=== PATIENT | male | born 1960 | race Caucasian/White ===

== ENCOUNTER 2017-02-03 16:55 | Inpatient (IN) | payer OTHER, MEDICARE ==
[~2017-02-03] VITALS: Ht 177.8 cm; Wt 54.4 kg
[2017-02-03] MEDS ORDERED: SODIUM CHLORIDE 0.9% 500ML 500 ML IV STA (17:06)
--- NOTE | 2017-02-03 17:08 | EMERGENCY ROOM VISIT NOTE ---
History First contact with patient: 16:58 Chief Complaint: ALTERED MENTAL STATUS Stated Complaint: AMS History of Present Illness The patient is a 57 year old male who presents to the Emergency Room with complaints of diaphoresis and altered mental status. The patient was sent in from a [place] [facility] as he does not appear to be at his baseline today. Nursing staff found him mumbling and diaphoretic. He also appears agitated. The patient lower spine to his name and mumbles. He was brought in by EMS. EMS also reports that the patient's Haldol and amlodipine were recently stopped. Review of Systems See HPI for pertinent positives & negatives. A total of 10 systems reviewed and were otherwise negative. Past Medical/Surgical History Dementia Social History Alcohol Use: none Drug Use: none Housing Status: [place] [facility] Occupation Status: disabled Current/Historical Medications Scheduled Amlodipine (Norvasc), 2.5 MG PO QAM Aripiprazole (Abilify), 2 MG PO QAM Benztropine Mesylate (Benztropine Mesylate), 1 MG PO QAM Mirtazapine (Mirtazapine), 15 MG PO QPM Nicotine (Nicotine), 1 PATCH TOP DAILY Rivastigmine (Rivastigmine Transdermal), 9.5 MG TOP DAILY Scheduled PRN Acetaminophen (Tylenol), 650 MG PO Q6 PRN for Pain Allergies Coded Allergies: Atropine (Unverified Allergy, Unknown, UNKNOWN, 02/03/17) Bee Venom (Unverified Allergy, Unknown, UNKNOWN, 02/03/17) Diphenhydramine (Unverified Allergy, Unknown, UNKNOWN, 02/03/17) Diphenoxylate (Unverified Allergy, Unknown, UNKNOWN, 02/03/17) Latex (Unverified Allergy, Unknown, UNKNOWN, 02/03/17) Midazolam (Unverified Allergy, Unknown, UNKNOWN, 02/03/17) Morphine (Unverified Allergy, Unknown, UNKNOWN, 02/03/17) Penicillins (Unverified Allergy, Unknown, UNKNOWN, 02/03/17) Physical Exam Vital Signs Date Time Temp Pulse Resp B/P Pulse Ox O2 Delivery O2 Flow Rate FiO2 02/03/17 18:38 89 20 103/70 93 02/03/17 18:22 100 16 148/101 96 Room Air 02/03/17 18:03 93 Room Air 2.0 02/03/17 18:03 93 2.0 02/03/17 17:55 78 20 193/122 99 Room Air 02/03/17 17:40 104 02/03/17 17:25 36.8 24 132/92 95 Room Air Physical Exam GENERAL: Patient is a healthy-appearing well-nourished male, shaky in appearance HEAD: Normocephalic atraumatic EYES: Ocular movements intact pupils equal and react to light OROPHARYNX mucous membranes are moist no exudates present no erythema or edema present NECK: Supple no nuchal rigidity CHEST: Good equal expansion LUNGS: Clear and equal to auscultation CARDIAC: Normal S1 and S2 ABDOMEN: Soft nontender no guarding BACK: No CVA tenderness EXTREMITIES: No pain upon palpation normal muscle strength in all groups no clubbing cyanosis or edema NEURO: Patient does not follow commands, does not answer questions. Cranial Nerves 2-12 grossly intact Medical Decision & Procedures ER Provider Diagnostic Interpretation: CHEST ONE VIEW PORTABLE CLINICAL HISTORY: Pt c/o AMS dyspnea COMPARISON STUDY: No previous studies for comparison. FINDINGS: The bones soft tissues and hemidiaphragms are normal. The cardiomediastinal silhouette is normal. The lungs are clear. The pulmonary vasculature is normal. Images acquired in a lordotic projection accentuating the mediastinal structures. IMPRESSION: Negative chest. Electronically signed by: Vishnu Jones M.D. 02/03/2017 6:29 PM Dictated Date/Time: 02/03/2017 6:[address] CT DOSE: 1612.45 mGy.cm HISTORY: Mental status change. Pt c/o AMS TECHNIQUE: Multiaxial CT images of the head were performed without the use of intravenous contrast. Comparison: None. Findings: The paranasal sinuses and mastoid air cells are clear. Moderate prominence of the ventricular system. Mild age-related chronic small vessel change. Somewhat prominent atrophy for age. Impression: 1. No acute intracranial abnormality. 2. Mild hydrocephalus with mild atrophy somewhat prominent for age. 3. Moderate chronic small vessel change, also somewhat prominent for age. 4. No acute intracranial abnormality. Electronically signed by: Vishnu Jones M.D. 02/03/2017 6:58 PM Dictated Date/Time: 02/03/2017 6:56 PM Laboratory Results 02/03/17 17:40 Red Blood Count 4.43, Mean Corpuscular Volume 85.8, Mean Corpuscular Hemoglobin 30.0, Mean Corpuscular Hemoglobin Concent 35.0, Mean Platelet Volume 10.0, Neutrophils (%) (Auto) 71.4, Lymphocytes (%) (Auto) 17.1, Monocytes (%) (Auto) 10.6, Eosinophils (%) (Auto) 0.6, Basophils (%) (Auto) 0.3, Neutrophils # (Auto ) 4.51, Lymphocytes # (Auto) 1.08, Monocytes # (Auto) 0.67, Eosinophils # (Auto ) 0.04, Basophils # (Auto) 0.02 02/03/17 17:40 Test 02/03/17 17:15 02/03/17 17:40 02/03/17 17:47 02/03/17 17:52 Urine Color DK YELLOW Urine Appearance CLEAR (CLEAR) Urine pH 5.0 (4.5-7.5) Urine Specific [place] 1.027 (1.000-1.030) Urine Protein NEG (NEG) Urine Glucose (UA) NEG (NEG) Urine Ketones NEG (NEG) Urine Occult Blood NEG (NEG) Urine Nitrite NEG (NEG) Urine Bilirubin NEG (NEG) Urine Urobilinogen NEG (NEG) Urine Leukocyte Esterase NEG (NEG) White Blood Count 6.32 K/uL (4.8-10.8) Red Blood Count 4.43 M/uL (4.7-6.1) Hemoglobin 13.3 g/dL (14.0-18.0) Hematocrit 38.0 % (42-52) Mean Corpuscular Volume 85.8 fL (80-100) Mean Corpuscular Hemoglobin 30.0 pg (25-34) Mean Corpuscular Hemoglobin Concent 35.0 g/dl (32-36) Platelet Count 214 K/uL (130-400) Mean Platelet Volume 10.0 fL (7.4-10.4) Neutrophils (%) (Auto) 71.4 % Lymphocytes (%) (Auto) 17.1 % Monocytes (%) (Auto) 10.6 % Eosinophils (%) (Auto) 0.6 % Basophils (%) (Auto) 0.3 % Neutrophils # (Auto) 4.51 K/uL (1.4-6.5) Lymphocytes # (Auto) 1.08 K/uL (1.2-3.4) Monocytes # (Auto) 0.67 K/uL (0.11-0.59) Eosinophils # (Auto) 0.04 K/uL (0-0.5) Basophils # (Auto) 0.02 K/uL (0-0.2) RDW Standard Deviation 40.7 fL (36.4-46.3) RDW Coefficient of Variation 12.9 % (11.5-14.5) Immature Granulocyte % (Auto) 0.0 % Immature Granulocyte # (Auto) 0.00 K/uL (0.00-0.02) Anion Gap 8.0 mmol/L (3-11) Estimated GFR () 77.9 Estimated GFR (Non- 67.2 BUN/Creatinine Ratio 35.1 (10-20) Calcium Level 9.1 mg/dl (8.5-10.1) Total Bilirubin 0.9 mg/dl (0.2-1) Direct Bilirubin 0.2 mg/dl (0-0.2) Aspartate Amino Transf (AST/SGOT) 110 U/L (15-37) Alanine Aminotransferase (ALT/SGPT) 100 U/L (12-78) Alkaline Phosphatase 53 U/L (45-117) Total Creatine Kinase 3770 U/L (39-308) Creatine Kinase MB 5.0 ng/ml (0.5-3.6) Creatine Kinase MB Ratio 0.1 (0-3.0) Troponin I < 0.015 ng/ml (0-0.045) Total Protein 7.1 gm/dl (6.4-8.2) Albumin 4.0 gm/dl (3.4-5.0) Thyroid Stimulating Hormone (TSH) 1.020 uIu/ml (0.300-4.500) Influenza Type A Antigen Neg for Influ A (NEG) Influenza Type B Antigen Neg for Influ B (NEG) Ammonia 10.0 umol/L (11-32) Test 02/03/17 19:32 Medications Administered Medications (Trade) Dose Ordered Sig/Sonia Route Start Time Stop Time Status Last Admin Dose Admin Sodium Chloride (Nss 500ml) 500 ml @ 999 mls/hr Q31M STAT IV 02/03/17 17:06 02/03/17 17:36 DC 02/03/17 17:32 999 MLS/HR Haloperidol Lactate (Haldol Inj) 5 mg NOW STAT IM 4/4/17 17:20 02/03/17 17:22 DC 02/03/17 17:29 5 MG Haloperidol Lactate (Haldol Inj) 5 mg NOW STAT IM 02/03/17 17:46 02/03/17 17:47 DC 02/03/17 17:51 5 MG Lorazepam (Ativan Inj) 2 mg NOW STAT IV 02/03/17 18:23 02/03/17 18:24 DC 02/03/17 18:30 2 MG ECG Indication: chest pain Rate (beats per minute): 73 Rhythm: normal sinus Findings: no acute ischemic change, no ectopy Medical Decision This is a 57-year-old male who presents emergency department complaining of diaphoresis. The patient Haldol and amlodipine were recently [place] the [place] [facility]. Upon arrival to the emergency department the patient appears to be at his baseline however he does have a large elevation in his CK and MB fractions. Based on these findings the patient was started on a normal saline bolus. The patient had a be sedated in the emergency department and service see 5 mg of Haldol 2 and 1 mg of Ativan 2. He was sent for CAT scan of the head received portable chest. He has no evidence of infection has a normal white blood cell count normal chest x-ray. I discussed the case with the hospitalist service. Impression Primary Impression: Altered mental status Additional Impression: Rhabdomyolysis Departure Information Dispostion Still a Patient Patient Instructions My [facility] Problem Qualifiers Primary Impression: Altered mental status Altered mental status type: unspecified Qualified Codes: R41.82 - Altered mental status, unspecified Additional Impression: Rhabdomyolysis Rhabdomyolysis type: non-traumatic Qualified Codes: M62.82 - Rhabdomyolysis
[2017-02-03] MEDS ORDERED: HALOPERIDOL LACTATE 5 MG/ML 1 ML VIAL IM STA ×2 (17:20→17:46)
[2017-02-03 17:25] LABS: URINE APPEARANCE CLEAR (CLEAR); URINE BILIRUBIN NEG (NEG); URINE COLOR DK YELLOW; URINE NITRITE NEG (NEG); URINE SPECIFIC GRAVITY 1.027 (1.000-1.030); UROBILINOGEN NEG (NEG); ZZURINE CULT IF INDIC CATH NO
[2017-02-03 17:27] LABS: MANUAL MICROSCOPIC REQUIRED? NO; REVIEW REQ? NO
[2017-02-03] MEDS ORDERED: NICO14DI9 TOP (17:43)
[2017-02-03] MEDS ORDERED: BENZ-88 PO (17:43)
[2017-02-03] MEDS ORDERED: ACET-1311 PO (17:43)
[2017-02-03] MEDS ORDERED: ARIP2TAB3 PO (17:43)
[2017-02-03] MEDS ORDERED: MIRT15TA53 PO (17:43)
[2017-02-03] MEDS ORDERED: RIVA1DIS4 TOP (17:43)
[2017-02-03] MEDS ORDERED: AMLO2.5T PO (17:43)
[2017-02-03 18:07] LABS: BASO % 0.3 %; BASO ABS # 0.02 K/uL (0-0.2); COMPLETE YES; EOS % 0.6 %; LYMPH % 17.1 %; LYMPH ABS # 1.08 K/uL (1.2-3.4); MEAN CELL VOLUME 85.8 fL (80-100); MONO % 10.6 %; NEUT % 71.4 %; PLATELET COUNT 214 K/uL (130-400); RED BLOOD COUNT 4.43 M/uL (4.7-6.1); WHITE BLOOD COUNT 6.32 K/uL (4.8-10.8)
[2017-02-03] MEDS ORDERED: LORAZEPAM 2 MG/ML 1 ML VIAL IV STA (18:23)
[2017-02-03 18:28] LABS: AST/SGOT 110 U/L (15-37); BLOOD UREA NITROGEN 42 mg/dl (7-18); BUN/CREATININE RATIO 35.1 (10-20); CALCIUM 9.1 mg/dl (8.5-10.1); CARBON DIOXIDE 27 mmol/L (21-32); CHLORIDE 109 mmol/L (98-107); GLUCOSE 104 mg/dl (70-99); POTASSIUM 4.2 mmol/L (3.5-5.1); SODIUM 144 mmol/L (136-145)
--- NOTE | 2017-02-03 18:30 | DIAGNOSTIC IMAGING REPORT ---
CHEST ONE VIEW PORTABLE CLINICAL HISTORY: Pt c/o AMS dyspnea COMPARISON STUDY: No previous studies for comparison. FINDINGS: The bones soft tissues and hemidiaphragms are normal. The cardiomediastinal silhouette is normal. The lungs are clear. The pulmonary vasculature is normal. Images acquired in a lordotic projection accentuating the mediastinal structures. IMPRESSION: Negative chest. Electronically signed by: Vishnu Jones M.D. 02/03/2017 6:29 PM Dictated Date/Time: 02/03/2017 6:28 PM
[2017-02-03 18:43] LABS: ALKALINE PHOSPHATASE 53 U/L (45-117); ALT/SGPT 100 U/L (12-78); CKMB/CK RATIO 0.1 (0-3.0)
[2017-02-03] MEDS ORDERED: SODIUM CHLORIDE 0.9% 1000ML 1,000 ML IV STA (18:54)
--- NOTE | 2017-02-03 18:59 | DIAGNOSTIC IMAGING REPORT ---
HEAD CT NONCONTRAST CT DOSE: 1612.45 mGy.cm HISTORY: Mental status change. Pt c/o AMS TECHNIQUE: Multiaxial CT images of the head were performed without the use of intravenous contrast. Comparison: None. Findings: The paranasal sinuses and mastoid air cells are clear. Moderate prominence of the ventricular system. Mild age-related chronic small vessel change. Somewhat prominent atrophy for age. Impression: 1. No acute intracranial abnormality. 2. Mild hydrocephalus with mild atrophy somewhat prominent for age. 3. Moderate chronic small vessel change, also somewhat prominent for age. 4. No acute intracranial abnormality. Electronically signed by: Vishnu Jones M.D. 02/03/2017 6:58 PM Dictated Date/Time: 02/03/2017 6:56 PM
[2017-02-03 19:53] LABS: BENZODIAZEPINE, URINE NEG (NEG); COCAINE,URINE NEG (NEG); PHENCYCLIDINE, URINE NEG (NEG)
[2017-02-03 19:57] LABS: INFLUENZA A PCR Neg for Influ A (NEG); INFLUENZA B PCR Neg for Influ B (NEG)
[2017-02-03] MEDS ORDERED: ONDANSETRON INJ 2 MG/ML 2 ML VIAL IV PRN (20:00)
--- NOTE | 2017-02-03 20:31 | DIAGNOSTIC IMAGING REPORT ---
Right upper quadrant ultrasound (LIVER) ABDOMEN LIMITED CLINICAL HISTORY: ABNORMAL Lift's elevated liver function tests TECHNIQUE: Ultrasound COMPARISON STUDY: None FINDINGS: Normal gallbladder. Common bile duct 3 mm. Liver is uniform. Pancreas and right kidney are unremarkable. IMPRESSION: Normal study Electronically signed by: Vishnu Jones M.D. 02/03/2017 8:29 PM Dictated Date/Time: 02/03/2017 8:28 PM
[2017-02-03 21:04] LABS: ACETAMINOPHEN < 2 ug/ml (10-30)
[2017-02-03 21:54] VITALS: BP 107/72; PULSE 75; TEMP 36.8; O2SAT 98; Ht 177.8 cm; Wt 54.4 kg
[2017-02-03] MEDS ORDERED: SODIUM CHLORIDE 0.9% 1000ML 1,000 ML IV SCH (23:00)
--- NOTE | 2017-02-04 04:20 | History and Physical ---
History & Physical Date & Time of Service: Feb 04, 2017 at 04:08. The patient was seen on 02/03/2017. Chief Complaint: Altered Mental Status Primary Care Physician: Rehab,[facility] Nursing and History of Present Illness Source: spouse The patient is a 57-year-old male resident of [facility], brought to the emergency department with complaint of diaphoresis and altered mental status. He was also noted to be mumbling and agitated there. He recently had Haldol and amlodipine stopped there is well. The patient himself is not able to contribute to the history of present illness due to his altered mental status and baseline Lewy body dementia. His was present during the exam is able to fill in part of the history. Social History Smoking Status: Smoker Current Status UNK Smokeless Tobacco Use: No Alcohol Use: none Drug Use: none Marital Status: Housing status: residential Occupational Status: disabled Multi-Drug Resistant Organisms History of MDRO: No Allergies Coded Allergies: Atropine (Unverified Allergy, Unknown, UNKNOWN, 02/03/17) Bee Venom (Unverified Allergy, Unknown, UNKNOWN, 02/03/17) Diphenhydramine (Unverified Allergy, Unknown, UNKNOWN, 02/03/17) Diphenoxylate (Unverified Allergy, Unknown, UNKNOWN, 02/03/17) Latex (Unverified Allergy, Unknown, UNKNOWN, 02/03/17) Midazolam (Unverified Allergy, Unknown, UNKNOWN, 02/03/17) Morphine (Unverified Allergy, Unknown, UNKNOWN, 02/03/17) Penicillins (Unverified Allergy, Unknown, UNKNOWN, 02/03/17) Home Medications Scheduled Amlodipine (Norvasc), 2.5 MG PO QAM Aripiprazole (Abilify), 2 MG PO QAM Benztropine Mesylate (Benztropine Mesylate), 1 MG PO QAM Mirtazapine (Mirtazapine), 15 MG PO QPM Nicotine (Nicotine), 1 PATCH TOP DAILY Rivastigmine (Rivastigmine Transdermal), 9.5 MG TOP DAILY Scheduled PRN Acetaminophen (Tylenol), 650 MG PO Q6 PRN for Pain Review of Systems The patient is not able to contribute to his review of systems due to baseline Lewy body dementia and altered mental status. As noted above, his who is present, does fill in part of the history. Physical Exam Vital Signs Date Time Temp Pulse Resp B/P Pulse Ox O2 Delivery O2 Flow Rate FiO2 02/04/17 00:00 Room Air 02/03/17 21:54 36.8 75 17 107/72 98 Room Air 02/03/17 20:50 60 14 87/55 91 Room Air 02/03/17 19:53 77 16 95/62 97 Room Air 02/03/17 18:38 89 20 103/70 93 02/03/17 18:22 100 16 148/101 96 Room Air 02/03/17 18:03 93 Room Air 2.0 02/03/17 18:03 93 2.0 02/03/17 17:55 78 20 193/122 99 Room Air 02/03/17 17:40 104 02/03/17 17:25 36.8 24 132/92 95 Room Air The patient is sedated, does not respond to questioning, is in no acute distress. HEENT--PERRL, EOMI, mucous membranes and oropharynx dry. Neck--supple, no JVD or bruits, thyroid normal, trachea midline, no adenopathy. Heart--normal S1 and S2, no extra beats, no murmurs, rubs or gallops. Lungs--clear bilaterally, no respiratory distress, no accessory muscle use. Abdomen--normal bowel sounds and soft, nontender and nondistended, no hernias or masses, no organomegaly. Extremities--no cyanosis, clubbing or edema. There are good distal pulses b/l. Dermatologic--normal skin turgor, normal color, warm and dry, no abnormal lymph nodes, no rash. Neurologic--cranial nerves II through XII grossly intact, motor and sensory examination normal. Rheumatologic--normal range of motion, nontender, muscles and joints. Psychiatric--sedated. Diagnostics Laboratory Results Results Past 24 Hours Test 02/03/17 17:15 02/03/17 17:40 02/03/17 17:47 02/03/17 17:52 Range/Units Urine Color DK YELLOW Urine Appearance CLEAR CLEAR Urine pH 5.0 4.5-7.5 Urine Specific [place] 1.027 1.000-1.030 Urine Protein NEG NEG Urine Glucose (UA) NEG NEG Urine Ketones NEG NEG Urine Occult Blood NEG NEG Urine Nitrite NEG NEG Urine Bilirubin NEG NEG Urine Urobilinogen NEG NEG Urine Leukocyte Esterase NEG NEG Urine Opiates Screen NEG NEG Urine Methadone, Qualitative NEG NEG Urine Barbiturates NEG NEG Urine Phencyclidine (PCP) Level NEG NEG Ur Amphetamine/Methamphetamine NEG NEG MDMA (Ecstasy) Screen NEG NEG Urine Benzodiazepines Screen NEG NEG Urine Cocaine Metabolite NEG NEG Urine Marijuana (THC) NEG NEG White Blood Count 6.32 4.8-10.8 K/uL Red Blood Count 4.43 4.7-6.1 M/uL Hemoglobin 13.3 14.0-18.0 g/dL Hematocrit 38.0 42-52 % Mean Corpuscular Volume 85.8 80-100 fL Mean Corpuscular Hemoglobin 30.0 25-34 pg Mean Corpuscular Hemoglobin Concent 35.0 32-36 g/dl Platelet Count 214 130-400 K/uL Mean Platelet Volume 10.0 7.4-10.4 fL Neutrophils (%) (Auto) 71.4 % Lymphocytes (%) (Auto) 17.1 % Monocytes (%) (Auto) 10.6 % Eosinophils (%) (Auto) 0.6 % Basophils (%) (Auto) 0.3 % Neutrophils # (Auto) 4.51 1.4-6.5 K/uL Lymphocytes # (Auto) 1.08 1.2-3.4 K/uL Monocytes # (Auto) 0.67 0.11-0.59 K/uL Eosinophils # (Auto) 0.04 0-0.5 K/uL Basophils # (Auto) 0.02 0-0.2 K/uL RDW Standard Deviation 40.7 36.4-46.3 fL RDW Coefficient of Variation 12.9 11.5-14.5 % Immature Granulocyte % (Auto) 0.0 % Immature Granulocyte # (Auto) 0.00 0.00-0.02 K/uL Sodium Level 144 136-145 mmol/L Potassium Level 4.2 3.5-5.1 mmol/L Chloride Level 109 98-107 mmol/L Carbon Dioxide Level 27 21-32 mmol/L Anion Gap 8.0 3-11 mmol/L Blood Urea Nitrogen 42 7-18 mg/dl Creatinine 1.20 0.60-1.40 mg/dl Estimated GFR () 77.9 Estimated GFR (Non- 67.2 BUN/Creatinine Ratio 35.1 10-20 Random Glucose 104 70-99 mg/dl Calcium Level 9.1 8.5-10.1 mg/dl Total Bilirubin 0.9 0.2-1 mg/dl Direct Bilirubin 0.2 0-0.2 mg/dl Aspartate Amino Transf (AST/SGOT) 110 15-37 U/L Alanine Aminotransferase (ALT/SGPT) 100 12-78 U/L Alkaline Phosphatase 53 45-117 U/L Total Creatine Kinase 3770 39-308 U/L Creatine Kinase MB 5.0 0.5-3.6 ng/ml Creatine Kinase MB Ratio 0.1 0-3.0 Troponin I < 0.015 0-0.045 ng/ml Total Protein 7.1 6.4-8.2 gm/dl Albumin 4.0 3.4-5.0 gm/dl Thyroid Stimulating Hormone (TSH) 1.020 0.300-4.500 uIu/ml Influenza Type A (RT-PCR) Neg for Influ A NEG Influenza Type A Antigen Neg for Influ A NEG Influenza Type B Antigen Neg for Influ B NEG Influenza Type B (RT-PCR) Neg for Influ B NEG Ammonia 10.0 11-32 umol/L Test 02/03/17 20:34 Range/Units Salicylates Level < 1.7 2.8-20 mg/dl Acetaminophen Level < 2 10-30 ug/ml Hepatitis B Surface Antigen NEG NEG Hepatitis C Antibody NEG NEG Diagnostic Radiology Patient Name: FLORIDA ARRIOLA Unit Number: [id number] Dictated: 02/03/171855 Transcribed: 02/03/171855 MS Printed Date/Time: [~ rep prt dt]/[~ rep prt tm] [~ rep ct labl] - [~ rep ct ivnm] [facility] [place] [address] Dictated: 02/03/171855 Transcribed: 02/03/171855 MS Printed Date/Time: [~ rep prt dt]/[~ rep prt tm] [~ rep ct labl] - [~ rep ct ivnm] [~ rep ct add3]] HEAD CT NONCONTRAST CT DOSE: 1612.45 mGy.cm HISTORY: Mental status change. Pt c/o AMS TECHNIQUE: Multiaxial CT images of the head were performed without the use of intravenous contrast. Comparison: None. Findings: The paranasal sinuses and mastoid air cells are clear. Moderate prominence of the ventricular system. Mild age-related chronic small vessel change. Somewhat prominent atrophy for age. Impression: 1. No acute intracranial abnormality. 2. Mild hydrocephalus with mild atrophy somewhat prominent for age. 3. Moderate chronic small vessel change, also somewhat prominent for age. 4. No acute intracranial abnormality. Electronically signed by: Vishnu Jones M.D. 02/03/2017 6:58 PM Dictated Date/Time: 02/03/2017 6:56 PM The status of this report is Signed. Draft = Not yet reviewed or approved by Radiologist. Signed = Reviewed and approved by Radiologist. <AttendingPhy></AttendingPhy> <FamilyPhy>[facility]</FamilyPhy > <PrimaryPhy>[facility]</PrimaryPhy> <UnitNumber>[id number]</ UnitNumber> <VisitNumber>[id number]</VisitNumber> <PatientName>FLORIDA ARRIOLA</ PatientName> <DateOfBirth>1960</DateOfBirth> <Location>[facility]</Location> < ServiceDate>02/03/17</ServiceDate> <MNE>ESINDI</MNE> <OrderingPhy>Arnulfo Kahn MD</OrderingPhy> <OrderingPhyMNE>f rep ord dr hatfield</OrderingPhyMNE> < DictatingPhyMNE>f rep dict dr hatfield</DictatingPhyMNE> <CCListMNE>f rep ct liu</ CCListMNE> <AdmittingPhyMNE>f pt admit dr hatfield</AdmittingPhyMNE> <AttendingPhyMNE >f pt attend dr hatfield</AttendingPhyMNE> <ConsultingPhyMNE>f pt consult dr hatfield</ConsultingPhyMNE> <FamilyPhyMNE>f pt fam dr hatfield</FamilyPhyMNE> <OtherPhyMNE>f pt other dr hatfield</OtherPhyMNE> < PrimaryPhyMNE>f pt prim care dr hatfield</PrimaryPhyMNE> <ReferringPhyMNE>f pt referring dr hatfield</ReferringPhyMNE> Patient Name: FLORIDA ARRIOLA Unit Number: [id number] Dictated: 02/03/171827 Transcribed: 02/03/171827 MS Printed Date/Time: [~ rep prt dt]/[~ rep prt tm] [~ rep ct labl] - [~ rep ct ivnm] [facility] [place] [address] Dictated: 02/03/171827 Transcribed: 02/03/171827 MS Printed Date/Time: [~ rep prt dt]/[~ rep prt tm] [~ rep ct labl] - [~ rep ct ivnm] CHEST ONE VIEW PORTABLE CLINICAL HISTORY: Pt c/o AMS dyspnea COMPARISON STUDY: No previous studies for comparison. FINDINGS: The bones soft tissues and hemidiaphragms are normal. The cardiomediastinal silhouette is normal. The lungs are clear. The pulmonary vasculature is normal. Images acquired in a lordotic projection accentuating the mediastinal structures. IMPRESSION: Negative chest. Electronically signed by: Vishnu Jones M.D. 02/03/2017 6:29 PM Dictated Date/Time: 02/03/2017 6:28 PM The status of this report is Signed. Draft = Not yet reviewed or approved by Radiologist. Signed = Reviewed and approved by Radiologist. <AttendingPhy></AttendingPhy> <FamilyPhy>[facility]</FamilyPhy > <PrimaryPhy>[facility]</PrimaryPhy> <UnitNumber>[id number]</ UnitNumber> <VisitNumber>[id number]</VisitNumber> <PatientName>FLORIDA ARRIOLA</ PatientName> <DateOfBirth>1960</DateOfBirth> <Location>[facility]</Location> < ServiceDate>02/03/17</ServiceDate> <MNE>ESINDI</MNE> <OrderingPhy>Arnulfo Kahn MD</OrderingPhy> <OrderingPhyMNE>f rep ord dr hatfield</OrderingPhyMNE> < DictatingPhyMNE>f rep dict dr hatfield</DictatingPhyMNE> <CCListMNE>f rep ct mne</ CCListMNE> <AdmittingPhyMNE>f pt admit dr hatfield</AdmittingPhyMNE> <AttendingPhyMNE >f pt attend dr hatfield</AttendingPhyMNE> <ConsultingPhyMNE>f pt consult dr hatfield</ConsultingPhyMNE> <FamilyPhyMNE>f pt fam dr hatfield</FamilyPhyMNE> <OtherPhyMNE>f pt other dr hatfield</OtherPhyMNE> < PrimaryPhyMNE>f pt prim care dr hatfield</PrimaryPhyMNE> <ReferringPhyMNE>f pt referring dr hatfield</ReferringPhyMNE> Patient Name: FLORIDA ARRIOLA Unit Number: [id number] Dictated: 02/03/172027 Transcribed: 02/03/172027 MS Printed Date/Time: [~ rep prt dt]/[~ rep prt tm] [~ rep ct labl] - [~ rep ct ivnm] [facility] Radiology Department [place] [id number] Dictated: 02/03/172027 Transcribed: 02/03/172027 MS Printed Date/Time: [~ rep prt dt]/[~ rep prt tm] [~ rep ct labl] - [~ rep ct ivnm] [~ rep ct add3]] Right upper quadrant ultrasound (LIVER) ABDOMEN LIMITED CLINICAL HISTORY: ABNORMAL Lift's elevated liver function tests TECHNIQUE: Ultrasound COMPARISON STUDY: None FINDINGS: Normal gallbladder. Common bile duct 3 mm. Liver is uniform. Pancreas and right kidney are unremarkable. IMPRESSION: Normal study Electronically signed by: Vishnu Joens M.D. 02/03/2017 8:29 PM Dictated Date/Time: 02/03/2017 8:28 PM The status of this report is Signed. Draft = Not yet reviewed or approved by Radiologist. Signed = Reviewed and approved by Radiologist. <AttendingPhy></AttendingPhy> <FamilyPhy>[facility]</FamilyPhy > <PrimaryPhy>[facility]</PrimaryPhy> <UnitNumber>[id number]</ UnitNumber> <VisitNumber>[id number]</VisitNumber> <PatientName>FLORIDA ARRIOLA</ PatientName> <DateOfBirth>1960</DateOfBirth> <Location>[facility]</Location> < ServiceDate>02/03/17</ServiceDate> <MNE>ESINDI</MNE> <OrderingPhy>Mario Alberto Butler M.D.</OrderingPhy> <OrderingPhyMNE>f rep ord dr hatfield</OrderingPhyMNE> < DictatingPhyMNE>f rep dict dr hatfield</DictatingPhyMNE> <CCListMNE>f rep ct liu</ CCListMNE> <AdmittingPhyMNE>f pt admit dr hatfield</AdmittingPhyMNE> <AttendingPhyMNE >f pt attend dr hatfield</AttendingPhyMNE> <ConsultingPhyMNE>f pt consult dr hatfield</ConsultingPhyMNE> <FamilyPhyMNE>f pt fam dr hatfield</FamilyPhyMNE> <OtherPhyMNE>f pt other dr hatfield</OtherPhyMNE> < PrimaryPhyMNE>f pt prim care dr hatfield</PrimaryPhyMNE> <ReferringPhyMNE>f pt referring dr hatfield</ReferringPhyMNE> EKG EKG shows normal sinus rhythm at 73 bpm, there are no acute ST-T changes. Impression Assessment and Plan Lewy body dementia/altered mental status--the patient be will be admitted to the medical floor. He'll be nothing by mouth. Place on normal saline with potassium chloride 20 mEq at 100 ML's per hour. We'll continue Rivastigmine transdermal 9.5 mg topical daily. Hold Abilify 2 mg by mouth every morning, benztropine 1 mg by mouth every morning, and mirtazapine 15 mg by mouth nightly due to nothing by mouth status. Rhabdomyolysis-CK is elevated at 3770, we'll hydrate as noted above and repeat in the a.m. Abnormal liver function tests--order ultrasound of right upper quadrant assess for possible disease. Repeat laboratories in the a.m. Hypertension--hold amlodipine 2.5 mg by mouth every morning. Tobacco use disorder continue nicotine patch topical daily. Level of Care Med/Surg Advanced Directives Existing Advance Directive: No Existing Living Will: No Existing Power of Street Light Mechanic: No Resuscitation Status FULL RESUSCITATION VTE Prophylaxis VTE Risk Assessment Done? Y/N: Yes Risk Level: Moderate Given or contraindicated: SCD's Social Service Consult Lives in Group Home
[2017-02-04 06:50] VITALS: BP 130/72; PULSE 88; TEMP 36.6; O2SAT 98
[2017-02-04 07:15] LABS: BASO % 0.5 %; BASO ABS # 0.03 K/uL (0-0.2); COMPLETE YES; EOS % 2.3 %; HEMATOCRIT 38.4 % (42-52); IG% 0.2 %; LYMPH ABS # 1.19 K/uL (1.2-3.4); MEAN CELL VOLUME 88.3 fL (80-100); MEAN CORPUSCULAR HEMOGLOBIN 29.9 pg (25-34); MEAN CORPUSCULAR HGB CONC 33.9 g/dl (32-36); MEAN PLATELET VOLUME 10.3 fL (7.4-10.4); MONO % 11.7 %; NEUT % 64.3 %; PLATELET COUNT 175 K/uL (130-400); RED BLOOD COUNT 4.35 M/uL (4.7-6.1); WHITE BLOOD COUNT 5.66 K/uL (4.8-10.8)
[2017-02-04 07:27] LABS: PROTHROMBIN TIME (PATIENT) 11.2 SECONDS (9.0-12.0)
[2017-02-04 07:45] LABS: CALCIUM 8.4 mg/dl (8.5-10.1); CREATININE 0.91 mg/dl (0.60-1.40); MAGNESIUM 2.4 mg/dl (1.8-2.4); POTASSIUM 3.9 mmol/L (3.5-5.1)
[2017-02-04] MEDS ORDERED: RIVASTIGMINE TARTRATE 9.5 MG PATCH TD SCH (08:00)
[2017-02-04] MEDS: NICOTINE 14 MG/24 HR TDSY TD SCH (08:29)
[2017-02-04] MEDS ORDERED: LORAZEPAM 2 MG/ML 1 ML VIAL IV PRN (08:45)
--- NOTE | 2017-02-04 08:59 | Clinical Documentation Query ---
CLINICAL DOCUMENTATION QUERY Dr. NUNEZ, In your clinical opinion is this patient being managed for: (x ) Metabolic encephalopathy see my notes ( ) Other explanation of clinical findings (Please Explain) ( ) Unable to determine (Please Define) ( ) Need to Discuss ( ) Not Agree The medical record reflects the following clinical findings, treatment, and risk factors. Clinical Indicators: 57 yo male presenting with diaphoresis and an altered mental status beyond his baseline Lewy body dementia. CT head showed mild hydrocephalus but no acute findings. CK 3770 Treatment: 1500 cc NSS bolus then continuous, pending neuro consult, monitor CK Risk Factors: rhabdomyolysis Please clarify and document your clinical opinion in the progress notes and discharge summary. Terms such as "probable", "suspected", "likely", "questionable", "possible", or "still to be ruled out" are acceptable. IF IN AGREEMENT, YOU MUST DOCUMENT ABOVE DIAGNOSTIC STATEMENT IN DAILY PROGRESS NOTES AND DISCHARGE SUMMARY. This document is not part of the patient's record. Thank You, Aimee Oconnor, [place] [phone]
[2017-02-04] MEDS ORDERED: SODIUM CHLOR 0.45% + 20MEQ KCL 1,000 ML IV SCH (09:00)
[2017-02-04] MEDS: PANTOprazole INJ 40 MG in SYRINGE 0 ML IV SCH (11:28)
--- NOTE | 2017-02-04 14:01 | Neurology Consultation ---
Neurology Consultation Date of Consultation: Feb 04, 2017. Attending Physician: Rodriguez Ibarra D.O. Primary Care Physician: Rehab,[facility] Nursing and Reason for Consultation: Lewy Body Dementia History of Present Illness Source: hospital records Loyd is a 57-year-old male resident of [facility] with a H diagnosis of Lewy Body dementia. He was last seen in our clinic in [place] 2015. He had been seen by neurosurgery for evaluation of NPH but neurosurgery did not feel this would help his symptoms so the trial was never completed. At last visit he was on only Exelon 3mg 2x per day orally. He scored a 6 on MME. He was followed by psychiatry as an outpatient but it is unclear at that time what he was taking. He had been previously trial of Namenda but his liver enzymes where elevated so it was stopped. He was brought to the ED due to confusion. reported to nursing that [facility] stopped his haldol and was in the process of switching him to Risperdal but he was never started on the Risperdal. He was also on remeron 15 mg, Abilify 2mg but both were held at admission. He is currently lying in bed and there is no family in the room. Past Medical/Surgical History Medical Problems: (1) Altered mental status Status: Acute Social History Smokeless Tobacco Use: No Alcohol Use: none Drug Use: none Marital Status: Housing Status: shelter Occupation Status: disabled Allergies Coded Allergies: Atropine (Unverified Allergy, Unknown, UNKNOWN, 02/03/17) Bee Venom (Unverified Allergy, Unknown, UNKNOWN, 02/03/17) Diphenhydramine (Unverified Allergy, Unknown, UNKNOWN, 02/03/17) Diphenoxylate (Unverified Allergy, Unknown, UNKNOWN, 02/03/17) Latex (Unverified Allergy, Unknown, UNKNOWN, 02/03/17) Midazolam (Unverified Allergy, Unknown, UNKNOWN, 02/03/17) Morphine (Unverified Allergy, Unknown, UNKNOWN, 02/03/17) Penicillins (Unverified Allergy, Unknown, UNKNOWN, 02/03/17) Current Inpatient Medications Current Inpatient Medications Medications (Trade) Dose Ordered Sig/Sonia Route Start Time Stop Time Status Last Admin Dose Admin Nicotine (Nicoderm Cq 14MG Patch) 1 patch DAILY TD 02/04/17 08:00 03/06/17 08:59 02/04/17 08:29 1 PATCH Rivastigmine Tartrate (Exelon Patch 9.5MG/24 Hr) 9.5 mg DAILY TD 02/04/17 08:00 03/06/17 08:59 02/04/17 08:30 9.5 MG Ondansetron HCl 4 mg 4 mg Q6H PRN IV 02/03/17 20:00 03/05/17 19:59 Pantoprazole Sodium/Syringe (Protonix Inj/ Syringe) 10 ml @ 5 mls/min DAILY@11 IV 02/04/17 11:00 03/06/17 10:59 02/04/17 11:28 5 MLS/MIN Miscellaneous (Remove Patch) 1 ea DAILY N/A 02/04/17 08:00 03/06/17 07:59 02/04/17 08:27 1 EA Miscellaneous 1 ea 1 ea DAILY@2000 N/A 02/04/17 20:00 03/06/17 19:59 Lorazepam/Syringe (Ativan Inj/ Syringe) 1 ml @ 0.5 mls/min Q4 PRN IV 02/04/17 08:30 03/06/17 08:29 Lorazepam 1 mg 1 mg Q4H PRN IV 02/04/17 08:45 03/06/17 08:44 Potassium Chloride/Sodium Chloride (1/2 Nss + 20meq KCl 1000ml) 1,000 ml @ 100 mls/hr Q10H IV 02/04/17 11:15 03/06/17 11:14 Physical Exam Vital Signs (Past 24 Hrs): Date Time Temp Pulse Resp B/P Pulse Ox O2 Delivery O2 Flow Rate FiO2 02/04/17 11:21 Room Air 02/04/17 06:50 36.6 88 20 130/72 98 Room Air 02/04/17 00:00 Room Air 02/03/17 21:54 36.8 75 17 107/72 98 Room Air 02/03/17 20:50 60 14 87/55 91 Room Air 02/03/17 19:53 77 16 95/62 97 Room Air 02/03/17 18:38 89 20 103/70 93 02/03/17 18:22 100 16 148/101 96 Room Air 02/03/17 18:03 93 Room Air 2.0 02/03/17 18:03 93 2.0 02/03/17 17:55 78 20 193/122 99 Room Air 02/03/17 17:40 104 02/03/17 17:25 36.8 24 132/92 95 Room Air Physical Exam: Constitutional: appearance thin pale ill appearing Ears, Nose, Mouth and Throat: mucous membranes moist, no injection and skin normal, eyes normal Cardiovascular: normal S-1 and S-2 and regular rate and rhythm Respiratory: clear to auscultation (CTA) and no rales, rhonchi or wheeze Musculoskeletal: no peripheral edema and good distal pulses Skin: no stigmata of neurocutaneous disease noted and normal and intact Eyes: extraocular muscles intact (EOMI) and pupils equal, round and reactive to light (PERRL) will not open eye to command NEUROLOGIC EXAMINATION: Mental status: when asked a question he mumbles, he will squeeze with both hand but will not let go. Cranial Nerves face appear symmetric Reflexes: Deep tendon reflexes were symmetrical and graded 2/5. LE bilaterally clonus sustained on right Coordination: will not follow commands Gait/Stance: Posture lying in bed Strength: will not hold arms in air or raise leg against resistance Laboratory Results Past 24 Hours: 02/04/17 07:03 Red Blood Count 4.35, Mean Corpuscular Volume 88.3, Mean Corpuscular Hemoglobin 29.9, Mean Corpuscular Hemoglobin Concent 33.9, Mean Platelet Volume 10.3, Neutrophils (%) (Auto) 64.3, Lymphocytes (%) (Auto) 21.0, Monocytes (%) (Auto) 11.7, Eosinophils (%) (Auto) 2.3, Basophils (%) (Auto) 0.5, Neutrophils # (Auto ) 3.64, Lymphocytes # (Auto) 1.19, Monocytes # (Auto) 0.66, Eosinophils # (Auto ) 0.13, Basophils # (Auto) 0.03 02/04/17 07:03 Test 02/03/17 17:15 02/03/17 17:40 02/03/17 17:47 02/03/17 17:52 Urine Color DK YELLOW Urine Appearance CLEAR (CLEAR) Urine pH 5.0 (4.5-7.5) Urine Specific [place] 1.027 (1.000-1.030) Urine Protein NEG (NEG) Urine Glucose (UA) NEG (NEG) Urine Ketones NEG (NEG) Urine Occult Blood NEG (NEG) Urine Nitrite NEG (NEG) Urine Bilirubin NEG (NEG) Urine Urobilinogen NEG (NEG) Urine Leukocyte Esterase NEG (NEG) Urine Opiates Screen NEG (NEG) Urine Methadone, Qualitative NEG (NEG) Urine Barbiturates NEG (NEG) Urine Phencyclidine (PCP) Level NEG (NEG) Ur Amphetamine/Methamphetamine NEG (NEG) MDMA (Ecstasy) Screen NEG (NEG) Urine Benzodiazepines Screen NEG (NEG) Urine Cocaine Metabolite NEG (NEG) Urine Marijuana (THC) NEG (NEG) Creatine Kinase MB 5.0 ng/ml (0.5-3.6) Creatine Kinase MB Ratio 0.1 (0-3.0) Troponin I < 0.015 ng/ml (0-0.045) Thyroid Stimulating Hormone (TSH) 1.020 uIu/ml (0.300-4.500) Influenza Type A (RT-PCR) Neg for Influ A (NEG) Influenza Type A Antigen Neg for Influ A (NEG) Influenza Type B Antigen Neg for Influ B (NEG) Influenza Type B (RT-PCR) Neg for Influ B (NEG) Ammonia 10.0 umol/L (11-32) Test 02/03/17 20:34 02/04/17 07:03 02/04/17 07:54 02/04/17 09:26 Salicylates Level < 1.7 mg/dl (2.8-20) Acetaminophen Level < 2 ug/ml (10-30) Hepatitis B Surface Antigen NEG (NEG) Hepatitis C Antibody NEG (NEG) White Blood Count 5.66 K/uL (4.8-10.8) Red Blood Count 4.35 M/uL (4.7-6.1) Hemoglobin 13.0 g/dL (14.0-18.0) Hematocrit 38.4 % (42-52) Mean Corpuscular Volume 88.3 fL (80-100) Mean Corpuscular Hemoglobin 29.9 pg (25-34) Mean Corpuscular Hemoglobin Concent 33.9 g/dl (32-36) Platelet Count 175 K/uL (130-400) Mean Platelet Volume 10.3 fL (7.4-10.4) Neutrophils (%) (Auto) 64.3 % Lymphocytes (%) (Auto) 21.0 % Monocytes (%) (Auto) 11.7 % Eosinophils (%) (Auto) 2.3 % Basophils (%) (Auto) 0.5 % Neutrophils # (Auto) 3.64 K/uL (1.4-6.5) Lymphocytes # (Auto) 1.19 K/uL (1.2-3.4) Monocytes # (Auto) 0.66 K/uL (0.11-0.59) Eosinophils # (Auto) 0.13 K/uL (0-0.5) Basophils # (Auto) 0.03 K/uL (0-0.2) RDW Standard Deviation 42.9 fL (36.4-46.3) RDW Coefficient of Variation 13.2 % (11.5-14.5) Immature Granulocyte % (Auto) 0.2 % Immature Granulocyte # (Auto) 0.01 K/uL (0.00-0.02) Prothrombin Time 11.2 SECONDS (9.0-12.0) Prothromb Time International Ratio 1.0 (0.9-1.1) Activated Partial Thromboplast Time 25.1 SECONDS (21.0-31.0) Partial Thromboplastin Ratio 1.0 Anion Gap 6.0 mmol/L (3-11) Est Creatinine Clear Calc Drug Dose 69.7 ml/min Estimated GFR () 108.8 Estimated GFR (Non- 93.9 BUN/Creatinine Ratio 39.0 (10-20) Calcium Level 8.4 mg/dl (8.5-10.1) Magnesium Level 2.4 mg/dl (1.8-2.4) Total Bilirubin 0.9 mg/dl (0.2-1) Direct Bilirubin 0.2 mg/dl (0-0.2) Aspartate Amino Transf (AST/SGOT) 73 U/L (15-37) Alanine Aminotransferase (ALT/SGPT) 78 U/L (12-78) Alkaline Phosphatase 48 U/L (45-117) Total Creatine Kinase 2343 U/L (39-308) Total Protein 5.9 gm/dl (6.4-8.2) Albumin 3.1 gm/dl (3.4-5.0) Bedside Glucose 92 mg/dl (70-99) C-Reactive Protein < 0.29 mg/dl (0-0.29) Procalcitonin < 0.05 ng/mL (0-0.5) Imaging CT head- No acute intracranial abnormality. Mild hydrocephalus with mild atrophy somewhat prominent for age. Moderate chronic small vessel change, also somewhat prominent for age. No acute intracranial abnormality. Impression 57 year old male with Lewy body dementia and parkinson- acute MS change Plan 1. consult psychiatry for recommendations for psychiatric medications 2. liver enzymes high levels of medication cleared through liver may be elevated may need to eliminate medications systematically to see if MS improves 3. uncertain circumstances of fall at facility- may need additional imaging but does not seem in pain 4. would limit ativan use due to sedation 5. CT head -moderate enlargement of ventricle- atrophy more than expected for age 6. family imput of events would be helpful 7. Exelon patch -9.5 mg may need tapered may be super therapeutic with liver disease I have seen and discussed above patient with Dr Alireza Luong, neurology Pateint seen and examined and available records reviewed - presumptive Lewy Body dementia with behavioral issues on multiple neuroleptics from an unknown source as records from [facility] as of October of 2016 indicated only oral exelon was on board and the concen then had been whether there was an element of nph ( [facility] did not feel that this was the case ) now in [facility] in transfer from [facility] and is here now due to increasing rigidity, falling and more confusion and agitation with elevated ck and other muscle enzymes, no particular fever and no particular elevation in wbc but with exam that suggests significant rigidity and parkinsonism ( I do not know the baseline degree of rigidity but this appears more than one would normally see in LBD ) That having been said the combination of the exam and elevation of ck in the setting of new or relatively new onset of multiple neuroleptic rx suggests Neuroleptic 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 If he get more rigid and ck rises and he becomes febrile with myoglobinuria however then a combination of parlodel and perhaps dantrolene may be needed. The former in the setting of LBD may cause worsening of behaviour an perhaps the dantrolene approach would not be unwise initially if indeed any pharmacological manipulation becomes necessitated by clinical decline. For now hopefully things will clear off meds and behavior will not worsen Discussed with Dr Ibarra today We will follow Alireza Luong MD
[2017-02-04 15:39] VITALS: BP 139/96; PULSE 105; TEMP 37; O2SAT 95
[2017-02-04 16:00] VITALS: O2SAT 95
[2017-02-04] MEDS: SODIUM CHLOR 0.45% + 20MEQ KCL 1,000 ML IV SCH ×2 (18:13→20:08)
--- NOTE | 2017-02-04 19:12 | Progress Note ---
Subjective Date of Service: Feb 04, 2017. Subjective Pt evaluation today including: conversation w/ patient, physical exam, chart review, lab review, review of studies, review of inpatient medication list no HPI or ROS obtainable from pt reviewed current charts, reviewed charts from [facility] vitals showed low grade temps (99-100 range) off and on last few days prior to admission Problem List Medical Problems: (1) Altered mental status Status: Acute Review of Systems unobtainable Objective Vital Signs Date Time Temp Pulse Resp B/P Pulse Ox O2 Delivery O2 Flow Rate FiO2 02/04/17 16:00 95 Room Air 02/04/17 15:39 37.0 105 16 139/96 95 Room Air 02/04/17 11:21 Room Air 02/04/17 06:50 36.6 88 20 130/72 98 Room Air 02/04/17 00:00 Room Air 02/03/17 21:54 36.8 75 17 107/72 98 Room Air 02/03/17 20:50 60 14 87/55 91 Room Air 02/03/17 19:53 77 16 95/62 97 Room Air Physical Exam General Appearance: no apparent distress (somewhat flushed, laying in bed a little restless but not agitated) Eyes: EOMI (difficult exam but EOMI as best can be assessed) ENT: hearing grossly normal (seems to respond to voice at normal tone) Neck: trachea midline Respiratory/Chest: lungs clear, normal breath sounds, no respiratory distress, no accessory muscle use Cardiovascular: regular rate, rhythm Abdomen: non tender, soft Extremities: normal range of motion Neurologic/Psychiatric: cosmetics presser II-XII nml as tested (no focal deficits), + pertinent finding (moderate tremor, moderate rigidity, no muscle tenderness) Skin: normal color Laboratory Results Last 24 Hours Test 02/03/17 20:34 02/04/17 07:03 02/04/17 07:54 02/04/17 09:26 Salicylates Level < 1.7 mg/dl Acetaminophen Level < 2 ug/ml Hepatitis B Surface Antigen NEG Hepatitis C Antibody NEG White Blood Count 5.66 K/uL Red Blood Count 4.35 M/uL Hemoglobin 13.0 g/dL Hematocrit 38.4 % Mean Corpuscular Volume 88.3 fL Mean Corpuscular Hemoglobin 29.9 pg Mean Corpuscular Hemoglobin Concent 33.9 g/dl Platelet Count 175 K/uL Mean Platelet Volume 10.3 fL Neutrophils (%) (Auto) 64.3 % Lymphocytes (%) (Auto) 21.0 % Monocytes (%) (Auto) 11.7 % Eosinophils (%) (Auto) 2.3 % Basophils (%) (Auto) 0.5 % Neutrophils # (Auto) 3.64 K/uL Lymphocytes # (Auto) 1.19 K/uL Monocytes # (Auto) 0.66 K/uL Eosinophils # (Auto) 0.13 K/uL Basophils # (Auto) 0.03 K/uL RDW Standard Deviation 42.9 fL RDW Coefficient of Variation 13.2 % Immature Granulocyte % (Auto) 0.2 % Immature Granulocyte # (Auto) 0.01 K/uL Prothrombin Time 11.2 SECONDS Prothromb Time International Ratio 1.0 Activated Partial Thromboplast Time 25.1 SECONDS Partial Thromboplastin Ratio 1.0 Sodium Level 146 mmol/L Potassium Level 3.9 mmol/L Chloride Level 113 mmol/L Carbon Dioxide Level 27 mmol/L Anion Gap 6.0 mmol/L Blood Urea Nitrogen 36 mg/dl Creatinine 0.91 mg/dl Est Creatinine Clear Calc Drug Dose 69.7 ml/min Estimated GFR () 108.8 Estimated GFR (Non- 93.9 BUN/Creatinine Ratio 39.0 Random Glucose 93 mg/dl Calcium Level 8.4 mg/dl Magnesium Level 2.4 mg/dl Total Bilirubin 0.9 mg/dl Direct Bilirubin 0.2 mg/dl Aspartate Amino Transf (AST/SGOT) 73 U/L Alanine Aminotransferase (ALT/SGPT) 78 U/L Alkaline Phosphatase 48 U/L Total Creatine Kinase 2343 U/L Total Protein 5.9 gm/dl Albumin 3.1 gm/dl Bedside Glucose 92 mg/dl C-Reactive Protein < 0.29 mg/dl Procalcitonin < 0.05 ng/mL Assessment and Plan rhabdomyolysis and mild neuroleptic malignant syndrome -d/w neurology input appreciated as well -for now since mild follow for self-resolution - med intervention likely w dantrolene if he were to worsen (and possibly just with benzodiazepines) due to risk of worsening agitation with other agents -follow CPK, follow exams and clinical status -off antipsychotics Lewy body dementia -off antipsychotics due to above -follow -is calm. appearing severely demented, doubt anticholinergic helping ( likely not culprit in current syndrome, but unlikely to be giving much benefit) Abnormal liver function tests--likely relates to rhabdo. improving. follow Hypertension--hold amlodipine 2.5 mg by mouth every morning. BP reasonable Tobacco use disorder continue nicotine patch topical daily.
[2017-02-05 00:57] VITALS: BP 130/89; PULSE 90; TEMP 36.4; O2SAT 97
[2017-02-05 07:02] LABS: BASO % 0.5 %; BASO ABS # 0.03 K/uL (0-0.2); COMPLETE YES; EOS % 2.2 %; IG% 0.2 %; LYMPH % 15.1 %; LYMPH ABS # 0.83 K/uL (1.2-3.4); MEAN CORPUSCULAR HEMOGLOBIN 30.1 pg (25-34); MEAN CORPUSCULAR HGB CONC 35.4 g/dl (32-36); MONO % 11.1 %; NEUT % 70.9 %; PLATELET COUNT 198 K/uL (130-400); RED BLOOD COUNT 4.59 M/uL (4.7-6.1); WHITE BLOOD COUNT 5.49 K/uL (4.8-10.8)
[2017-02-05 07:03] VITALS: BP 120/79; PULSE 83; TEMP 36.9; O2SAT 97
[2017-02-05 07:25] LABS: BUN/CREATININE RATIO 26.8 (10-20); CALCIUM 8.5 mg/dl (8.5-10.1); CREATININE 0.81 mg/dl (0.60-1.40)
[2017-02-05] MEDS: NICOTINE 14 MG/24 HR TDSY TD SCH (09:31)
[2017-02-05] MEDS: PANTOprazole INJ 40 MG in SYRINGE 0 ML IV SCH (11:45)
[2017-02-05] MEDS: SODIUM CHLOR 0.45% + 20MEQ KCL 1,000 ML IV SCH (12:35)
[2017-02-05 15:35] VITALS: BP 130/85; PULSE 93; TEMP 37; O2SAT 98
[2017-02-05 16:00] VITALS: O2SAT 98
--- NOTE | 2017-02-05 17:42 | PROGRESS NOTE ---
DATE: 02/05/2017 SUBJECTIVE: Loyd looks a little brighter. His eyes are open. He is essentially nonverbal. Smiles appropriately, but then smiles spontaneously as well. He has less contractures. He looks little less rigid. Now, I am seeing some myoclonic activity of the arms. CPK is falling. White count has not elevated. Urine output seems to be good, and thus far we do not have to institute a full court therapeutic attack on what I think is low-grade form of neuroleptic malignant syndrome. Unfortunately, he has a preexisting element of basal ganglia disease, so some of the rigidity we see may reflect his underlying Lewy body disorder with Parkinsonian elements, but what I see now I think is excessive, and after discussing case with Dr. Estrada, it is certainly nothing like what she saw back in October before the onset of a neuroleptic therapy at [facility] I will check an EEG just to be sure there is no cortical myoclonus involved and/or subclinical seizure activity. I think he will be calm enough, so we can get a good study. I will read it tomorrow and Dr. Estrada who knows his baseline will be making rounds on the consult service tomorrow with [facility]. SAE
--- NOTE | 2017-02-05 18:24 | Progress Note ---
Subjective Date of Service: Feb 05, 2017. Subjective Pt evaluation today including: conversation w/ patient, conversation w/ family (extensive d/w over the phone), physical exam, chart review, lab review, review of inpatient medication list no HPI or ROS obtainable Problem List Medical Problems: (1) Altered mental status Status: Acute Review of Systems unobtainable Objective Vital Signs Date Time Temp Pulse Resp B/P Pulse Ox O2 Delivery O2 Flow Rate FiO2 02/05/17 16:00 98 Room Air 02/05/17 15:35 37.0 93 16 130/85 98 02/05/17 08:00 Room Air 02/05/17 07:03 36.9 83 15 120/79 97 Room Air 02/05/17 00:57 36.4 90 20 130/89 97 Room Air 02/05/17 00:00 Room Air Physical Exam General Appearance: no apparent distress Eyes: EOMI ENT: hearing grossly normal Neck: trachea midline Respiratory/Chest: lungs clear, normal breath sounds, no respiratory distress, no accessory muscle use Cardiovascular: regular rate, rhythm Neurologic/Psychiatric: creative resource manager II-XII nml as tested (no focal deficits. ongoing tremors, and ongoing rigidity but seems a little better than yesterday) Skin: normal color, warm/dry Laboratory Results Last 24 Hours Test 02/05/17 06:20 White Blood Count 5.49 K/uL Red Blood Count 4.59 M/uL Hemoglobin 13.8 g/dL Hematocrit 39.0 % Mean Corpuscular Volume 85.0 fL Mean Corpuscular Hemoglobin 30.1 pg Mean Corpuscular Hemoglobin Concent 35.4 g/dl Platelet Count 198 K/uL Mean Platelet Volume 10.0 fL Neutrophils (%) (Auto) 70.9 % Lymphocytes (%) (Auto) 15.1 % Monocytes (%) (Auto) 11.1 % Eosinophils (%) (Auto) 2.2 % Basophils (%) (Auto) 0.5 % Neutrophils # (Auto) 3.89 K/uL Lymphocytes # (Auto) 0.83 K/uL Monocytes # (Auto) 0.61 K/uL Eosinophils # (Auto) 0.12 K/uL Basophils # (Auto) 0.03 K/uL RDW Standard Deviation 39.5 fL RDW Coefficient of Variation 12.8 % Immature Granulocyte % (Auto) 0.2 % Immature Granulocyte # (Auto) 0.01 K/uL Sodium Level 141 mmol/L Potassium Level 4.0 mmol/L Chloride Level 108 mmol/L Carbon Dioxide Level 25 mmol/L Anion Gap 8.0 mmol/L Blood Urea Nitrogen 22 mg/dl Creatinine 0.81 mg/dl Est Creatinine Clear Calc Drug Dose 78.4 ml/min Estimated GFR () 115.1 Estimated GFR (Non- 99.4 BUN/Creatinine Ratio 26.8 Random Glucose 97 mg/dl Calcium Level 8.5 mg/dl Total Bilirubin 1.6 mg/dl Direct Bilirubin 0.3 mg/dl Aspartate Amino Transf (AST/SGOT) 69 U/L Alanine Aminotransferase (ALT/SGPT) 96 U/L Alkaline Phosphatase 57 U/L Total Creatine Kinase 1574 U/L Total Protein 6.6 gm/dl Albumin 3.4 gm/dl Assessment and Plan rhabdomyolysis and mild neuroleptic malignant syndrome -neurology input appreciated -appears improving, continue to follow simply off psych meds -follow CPK, follow exams and clinical status -off antipsychotics Lewy body dementia -off antipsychotics due to above -d/w re ?plans on restarting meds for behaviors w LBD. discussed SNF psychiatrist will be managing in the long run, so that will be most important follow up on meds, but if she desired, hospital psychiatry team could offer opinion on what might be reasonable course with meds. she desires this - will ask psych to see for thoughts and recommendations on further treatment for LBD behaviors in the face of having just had mild NMS Abnormal liver function tests--likely relates to rhabdo and NMS, but went up a little today - will continue to follow. Hypertension--holding amlodipine and BP's reviewed and still reasonable Tobacco use disorder continue nicotine patch topical daily. DVT proph - add lovenox
[2017-02-06 07:34] VITALS: BP 124/84; PULSE 69; TEMP 36.7; O2SAT 92
[2017-02-06 07:55] LABS: BUN/CREATININE RATIO 23.3 (10-20); CALCIUM 8.6 mg/dl (8.5-10.1); CREATININE 0.98 mg/dl (0.60-1.40); POTASSIUM 4.3 mmol/L (3.5-5.1)
[2017-02-06] MEDS ORDERED: ENOXAPARIN 40 MG/0.4 ML SYR SQ SCH (08:00)
[2017-02-06] MEDS: NICOTINE 14 MG/24 HR TDSY TD SCH (08:35)
[2017-02-06] MEDS: SODIUM CHLOR 0.45% + 20MEQ KCL 1,000 ML IV SCH (08:35)
--- NOTE | 2017-02-06 12:43 | ELECTROENCEPHALOGRAPH REPORT ---
CLINICAL DIAGNOSIS: Progressive dementia, possibly Lewy body disease with now rigidity induced by neuroleptics and episodic myoclonus of uncertain cause. ELECTROENCEPHALOGRAM DIAGNOSIS: Moderately diffusely abnormal EEG during wakefulness. DESCRIPTION OF TRACING: This EEG was done as a bedside recording and is of reasonable technical quality allowing for the periodic muscle movement artifacts which are captured by simultaneous video analysis of patient movement and behavior. No activation procedures were utilized. Drowsiness and light sleep were not clearly seen. Under these conditions, there is no evidence for a normal background rhythm in the alpha range but rather a posterior head region maximum approximately bilaterally symmetrical, background rhythm in the mid to upper theta range of about 6 Hz of maximum frequency and 30 microvolts of maximum amplitude. Polymorphic slower activity in the theta range intermixed with some lower amplitude nonrhythmic activity in the delta range is seen over all head regions without clear focal or regional predominance. Anterior head region maximum bilaterally symmetrical low voltage fast activity in the beta range is difficult to appreciate behind the muscle movement artifacts. At no time during the waking tracing, there is evidence for potentially epileptogenic activity in the form of polyspike or spike wave bursts, focal sharp waves or focal spikes and any outpatient motor movements are not preceded or accompanied by any significant electroencephalographic changes. No evidence for clinical myoclonus was seen on review of the video recording. INTERPRETATION: This EEG revealed some moderately diffuse nonfocal abnormalities consistent with generalized nonspecific encephalopathy that demonstrates no lateralizing features and has no associated potentially epileptogenic patterns.
--- NOTE | 2017-02-06 14:39 | Neurology Progress Notes ---
Neurology Progress Note Date of Service Feb 06, 2017. Neil Harp is a 57-year-old male resident of [facility] with a H diagnosis of Lewy Body dementia. He was last seen in our clinic in [place] 2015. He had been seen by neurosurgery for evaluation of NPH but neurosurgery did not feel this would help his symptoms so the trial was never completed. At last visit he was on only Exelon 3mg 2x per day orally. He scored a 6 on MME. He was followed by psychiatry as an outpatient but it is unclear at that time what he was taking. He had been previously trial of Namenda but his liver enzymes where elevated so it was stopped. He was brought to the ED due to confusion. [facility] and was in the process of switching him to Risperdal but he was never started on the Risperdal. He was also on remeron 15 mg, Abilify 2mg but both were held at admission. He is currently lying in bed and there is no family in the room. Aid in the room states it took two people to walk him to the bathroom. he is only eating pudding and when they tried giving him a bite of chicken he held it in his mouth for 1/2 hour. Objective Date Time Temp Pulse Resp B/P Pulse Ox O2 Delivery O2 Flow Rate FiO2 02/06/17 08:19 Room Air 02/06/17 07:34 36.7 69 19 124/84 92 Room Air 02/06/17 00:14 Room Air 02/05/17 16:00 98 Room Air 02/05/17 15:35 37.0 93 16 130/85 98 Last 24 Hours Test 02/06/17 07:06 Sodium Level 139 mmol/L Potassium Level 4.3 mmol/L Chloride Level 105 mmol/L Carbon Dioxide Level 26 mmol/L Anion Gap 8.0 mmol/L Blood Urea Nitrogen 23 mg/dl Creatinine 0.98 mg/dl Est Creatinine Clear Calc Drug Dose 64.8 ml/min Estimated GFR () 99.5 Estimated GFR (Non- 85.8 BUN/Creatinine Ratio 23.3 Random Glucose 91 mg/dl Calcium Level 8.6 mg/dl Total Bilirubin 1.2 mg/dl Direct Bilirubin 0.3 mg/dl Aspartate Amino Transf (AST/SGOT) 47 U/L Alanine Aminotransferase (ALT/SGPT) 91 U/L Alkaline Phosphatase 60 U/L Total Creatine Kinase 564 U/L Total Protein 6.5 gm/dl Albumin 3.4 gm/dl Imaging: This EEG revealed some moderately diffuse nonfocal abnormalities consistent with generalized nonspecific encephalopathy that demonstrates no lateralizing features and has no associated potentially epileptogenic patterns. Exam: Physical Exam: Constitutional: appearance thin pale ill appearing Ears, Nose, Mouth and Throat: mucous membranes moist, no injection and skin normal, eyes normal Cardiovascular: normal S-1 and S-2 and regular rate and rhythm Respiratory: clear to auscultation (CTA) and no rales, rhonchi or wheeze Musculoskeletal: no peripheral edema and good distal pulses Skin: no stigmata of neurocutaneous disease noted and normal and intact Eyes: pupils equal, round and reactive to light (PERRL) NEUROLOGIC EXAMINATION: Mental status: Alert with name but rolls over and goes back to sleep until further stimulated Cranial Nerves facial symmetry Reflexes: Deep tendon reflexes were symmetrical and graded 2/5. Plantar responses were flexor. Gait/Stance: Posture lying in bed moves all extremities spontaneously Strength: asked to squeeze hand but then does not let go. move legs spontaneously but no with command Current Inpatient Medications Medications (Trade) Dose Ordered Sig/Sonia Route Start Time Stop Time Status Last Admin Dose Admin Nicotine (Nicoderm Cq 14MG Patch) 1 patch DAILY TD 02/04/17 08:00 03/06/17 08:59 02/06/17 08:35 1 PATCH Ondansetron HCl (Zofran Inj) 4 mg Q6H PRN IV 02/03/17 20:00 03/05/17 19:59 Miscellaneous 1 ea 1 ea DAILY@1999 N/A 02/04/17 20:00 03/06/17 19:59 02/05/17 20:00 1 EA Lorazepam/Syringe (Ativan Inj/ Syringe) 1 ml @ 0.5 mls/min Q4 PRN IV 02/04/17 08:30 03/06/17 08:29 Lorazepam 1 mg 1 mg Q4H PRN IV 02/04/17 08:45 03/06/17 08:44 Potassium Chloride/Sodium Chloride (1/2 Nss + 20meq KCl 1000ml) 1,000 ml @ 50 mls/hr Q20H IV 02/04/17 11:15 03/06/17 11:14 02/06/17 08:35 50 MLS/HR Enoxaparin Sodium (Lovenox Inj) 40 mg QAM SQ 02/06/17 08:00 03/08/17 07:59 02/05/17 20:48 40 MG Enoxaparin Sodium (Lovenox Inj) 40 mg DAILY@2000 SQ 02/06/17 20:00 03/08/17 19:59 Impression 57 year old male with Lewy body dementia and parkinson- acute MS change Plan 1. consult psychiatry for recommendations for psychiatric medications 2. liver enzymes high levels of medication cleared through liver may be elevated may need to eliminate medications systematically to see if MS improves 3. uncertain circumstances of fall at facility- may need additional imaging but does not seem in pain 4. would limit ativan use due to sedation 5. CT head -moderate enlargement of ventricle- atrophy more than expected for age 6. family input of events would be helpful 7. Exelon patch -9.5 mg may need tapered may be super therapeutic with liver disease- has been stopped 8. liver enzymes are improving and the CK is down from 2343 at admission to 564 9. psych medications have been stopped would restart with direction from psychiatry 10. EEG with generalized slowing no epileptic activity I have seen and discussed above patient with Dr Zelda Estrada, neurology Pt known to me with LBD with parkinsonism with NMS type event related to psychotropics. Pt examined, seated, facial masking, occasional myoclonic jerks mild to moderate generalized rigidity. Pt improving as meds dced, ck trending down. Will need psychiatry input for any emergent sx. STEFFEN Estrada MD
[2017-02-06 15:23] VITALS: BP 148/97; PULSE 91; TEMP 36.6; O2SAT 99
--- NOTE | 2017-02-06 16:27 | Progress Note ---
Subjective Date of Service: Feb 06, 2017. Subjective Pt evaluation today including: conversation w/ patient, physical exam, chart review, lab review, review of inpatient medication list no HPI or ROS seems less stiff today Problem List Medical Problems: (1) Altered mental status Status: Acute Review of Systems not obtainable Objective Vital Signs Date Time Temp Pulse Resp B/P Pulse Ox O2 Delivery O2 Flow Rate FiO2 02/06/17 15:23 36.6 91 20 148/97 99 Room Air 02/06/17 08:19 Room Air 02/06/17 07:34 36.7 69 19 124/84 92 Room Air 02/06/17 00:14 Room Air Physical Exam General Appearance: no apparent distress Eyes: EOMI ENT: hearing grossly normal Neck: trachea midline Respiratory/Chest: no respiratory distress, no accessory muscle use Extremities: + pertinent finding (less rigidity than yestrday) Neurologic/Psychiatric: aboriginal education worker coordinator II-XII nml as tested (no focal deficits) Laboratory Results Last 24 Hours Test 02/06/17 07:06 Sodium Level 139 mmol/L Potassium Level 4.3 mmol/L Chloride Level 105 mmol/L Carbon Dioxide Level 26 mmol/L Anion Gap 8.0 mmol/L Blood Urea Nitrogen 23 mg/dl Creatinine 0.98 mg/dl Est Creatinine Clear Calc Drug Dose 64.8 ml/min Estimated GFR () 99.5 Estimated GFR (Non- 85.8 BUN/Creatinine Ratio 23.3 Random Glucose 91 mg/dl Calcium Level 8.6 mg/dl Total Bilirubin 1.2 mg/dl Direct Bilirubin 0.3 mg/dl Aspartate Amino Transf (AST/SGOT) 47 U/L Alanine Aminotransferase (ALT/SGPT) 91 U/L Alkaline Phosphatase 60 U/L Total Creatine Kinase 564 U/L Total Protein 6.5 gm/dl Albumin 3.4 gm/dl Assessment and Plan rhabdomyolysis and mild neuroleptic malignant syndrome -neurology input appreciated -appears improving, continue to follow simply off psych meds -CPK trending down and exam improving, but doesn't quite appear stable for discharge Lewy body dementia -off antipsychotics due to above -d/w psych for thoughts on further meds. -appearing overall stable Abnormal liver function tests--likely relates to rhabdo and NMS, need to continue to follow - levels bouncing around some, albeit in fairly low ranges Hypertension--holding amlodipine and BP's reviewed and still reasonable Tobacco use disorder continue nicotine patch topical daily. DVT proph - add lovenox
--- NOTE | 2017-02-06 16:42 | Psychiatric Consultation ---
Consultation Date of Consultation Feb 06, 2017. Identifying Data Loyd Bell is a 57-year-old male who currently lives in [facility]. History is provided by the patient's via liaison and per discussion with Dr. Ibarra as he is admitted with AMS/mild rhabdo and is essentially non-verbal. Chief Complaint lewy body dementia History of Present Illness reportedly combative at custodial prior to coming to ED, hasn't been able to follow commands. He was seeing a psychiatrist at [facility] and recently switched from Haldol to Risperdal and/or Abilify for history of responding to hallucinations. His Remeron was also held on admission to hospital. Neurology has been following in consultation given rx of rivastigmine 9.5 mg transdermal. His providers expressed concerns about early symptoms of NMS given rigidity ( baseline level of Parkinsonian symptoms unknown) and CPK peaked at just over 3000 with possible low grade temps at custodial. EEG completed by neuro as part of work up for AMS, no epileptiform discharges Past Psychiatric History Current OP Treatment: psychiatrist (Dr. Douglas [facility], will be seeing custodial provider) Prior Psych Hospitalizations: none Access to a Gun: No Suicide Attempts: No Past Medication Trials namenda (increased liver enzymes), Haldol and Cogentin December 2016, previously off meds for 18 months and restarted in April. Past Medical/Surgical History History of Concussion/Seizure: Yes [facility] [place] [facility] 15[facility] (1) Altered mental status hernia repais, scrotal surgery, lung prolapse in 2001, Parkinson's associated with lewy body dementia Allergies Allergies: Coded Allergies: Atropine (Unverified Allergy, Unknown, UNKNOWN, 02/03/17) Bee Venom (Unverified Allergy, Unknown, UNKNOWN, 02/03/17) Diphenhydramine (Unverified Allergy, Unknown, UNKNOWN, 02/03/17) Diphenoxylate (Unverified Allergy, Unknown, UNKNOWN, 02/03/17) Latex (Unverified Allergy, Unknown, UNKNOWN, 02/03/17) Midazolam (Unverified Allergy, Unknown, UNKNOWN, 02/03/17) Morphine (Unverified Allergy, Unknown, UNKNOWN, 02/03/17) Penicillins (Unverified Allergy, Unknown, UNKNOWN, 02/03/17) Home Medications Scheduled Amlodipine (Norvasc), 2.5 MG PO QAM Aripiprazole (Abilify), 2 MG PO QAM Benztropine Mesylate (Benztropine Mesylate), 1 MG PO QAM Mirtazapine (Mirtazapine), 15 MG PO QPM Nicotine (Nicotine), 1 PATCH TOP DAILY Rivastigmine (Rivastigmine Transdermal), 9.5 MG TOP DAILY Scheduled PRN Acetaminophen (Tylenol), 650 MG PO Q6 PRN for Pain Family History History of Suicide: No History of Substance Abuse: No Psychiatric History: No Alcohol Use Alcohol Use In Past 12 Months: No Smoking Use Smoking Status: Smoker Current Status UNK Substance History denied Personal History Childhood: grew up in [place] Education: other (GED) Work History: disabled industrial truck mechanic Relationship History: (2nd , 20+years) Children: elise, 2 sons Review of Systems patient is unable to complete Examination Vital Signs Vital Signs Past 12 Hours Date Time Temp Pulse Resp B/P Pulse Ox O2 Delivery O2 Flow Rate FiO2 02/06/17 15:23 36.6 91 20 148/97 99 Room Air 02/06/17 08:19 Room Air 02/06/17 07:34 36.7 69 19 124/84 92 Room Air Laboratory Results Last 24 Hours Test 02/06/17 07:06 Sodium Level 139 mmol/L Potassium Level 4.3 mmol/L Chloride Level 105 mmol/L Carbon Dioxide Level 26 mmol/L Anion Gap 8.0 mmol/L Blood Urea Nitrogen 23 mg/dl Creatinine 0.98 mg/dl Est Creatinine Clear Calc Drug Dose 64.8 ml/min Estimated GFR () 99.5 Estimated GFR (Non- 85.8 BUN/Creatinine Ratio 23.3 Random Glucose 91 mg/dl Calcium Level 8.6 mg/dl Total Bilirubin 1.2 mg/dl Direct Bilirubin 0.3 mg/dl Aspartate Amino Transf (AST/SGOT) 47 U/L Alanine Aminotransferase (ALT/SGPT) 91 U/L Alkaline Phosphatase 60 U/L Total Creatine Kinase 564 U/L Total Protein 6.5 gm/dl Albumin 3.4 gm/dl Mental Examination patient is nonverbal but has significant increase in tone with cogwheeling in lower extremities, unable to put chin/chest, denies pain but nonverbal and disoriented, appears in/out sleep. Impression / Recommendations Impression 57 yo male with previous diagnosis of lewy body dementia presents with significant EPS from antipsychotic medications with mild CK elevation. Recommendations reviewed with Dr. Ibarra that I would recommend holding all psychotropics at this time. My concern is less NMS than it is exquisite sensitivity to EPS in patients with lewy body dementia. I'd defer to neuro on what may assist with decreasing rigidity as it's unclear how much is his parkinson's vs parkinsonian side effects of meds. Certainly main concern would be his swallow at this time given his AMS and ongoing muscle tightness, I defer to primary medical team re: diet/speech assessment of swallow. Cogentin unlikely to be of much benefit and could add additional anticholinergic side effects. would prefer low dose Ativan if need agent for agitation while hospitalized, again hope to avoid as can contribute to AMS. Agree that reintroduction of antipsychotic (if required ) best done by a continuity provider at custodial, possible 12.5 mg Seroquel if needed for dillard that are distressing/driving agitation. Abilify was low dose but can take time to clear. Would hold Remeron as appears quite sedated. Will follow.
[2017-02-06] MEDS: ENOXAPARIN 40 MG/0.4 ML SYR SQ SCH (20:00)
[2017-02-07 00:50] VITALS: O2SAT 99
[2017-02-07] MEDS: SODIUM CHLOR 0.45% + 20MEQ KCL 1,000 ML IV SCH (03:49)
[2017-02-07] MEDS: NICOTINE 14 MG/24 HR TDSY TD SCH (07:38)
[2017-02-07 08:09] VITALS: BP 117/81; PULSE 73; TEMP 36.5; O2SAT 99
--- NOTE | 2017-02-07 10:30 | NEUROLOGY PROGRESS NOTE ---
DATE: 02/07/2017 DATE: 02/07/2017. SUBJECTIVE: I am seeing Mr. Bell in followup. He has a history of Lewy body dementia with Parkinsonism and recently was placed on Haldol with a resultant NMS type picture. All medicines have been held with the exception of lorazepam. He is gradually improving. CK is drifting back down to normal. OBJECTIVE: VITAL SIGNS: 36.5, 73, 18, 117/81. GENERAL: The patient is sleepy, but arousable, able to tell me the name of his daughters. Follows some very marginal commands. There are some occasional myoclonic jerks of the upper extremity. There is increased tone, although improved compared to baseline admission. IMPRESSION: Lewy body dementia with Parkinsonism without adverse effects related to her Haldol use. The patient will be extremely sensitive to any neuroleptic administration. He is becoming mildly more restless and may require a psychiatric consultation for further medication management. At this point, I would not use any dopamine nor Aricept, Namenda or anything else cholinomimetic. Will follow with you. SAE
[2017-02-07 16:28] VITALS: BP 124/88; PULSE 89; TEMP 36.4; O2SAT 95
--- NOTE | 2017-02-07 19:15 | Progress Note ---
Subjective Date of Service: Feb 07, 2017. Subjective Pt evaluation today including: conversation w/ patient, conversation w/ family , physical exam, chart review, lab review, review of inpatient medication list pt seen twice today first seen by himself - no meanignful HPI or ROS - PRODUCTION TEAM LEADER with him notes that he's been a little restless -- up and down and on hands and knees but not apeparing uncomfortable and not at all agitated then called back to revisit - family prsent - dtr and son - and wanted to talk - RN checked with ADDIE and notes that it was OK if i talk to them but not ex- who was also present, she respectfully sat in dillard far removed from the room so as not to be able to hear either. then ADDIE requested i call after the conversation so i did - she asked if he (pt) recognized them, i said they told me he recognized dtr when they walked in room she then noted "well they're liars so..." -- informed her that their +/- of recognition of his dtr would not be changing clinical course on things. later another relative - sister - called asking for update. apparently ADDIE gave permission for information to her as well. however, having already had two different discussions on the same situation with two different sets of family, i will call her tomorrow, as well as re-update ADDIE. extensive time spent on this Problem List Medical Problems: (1) Altered mental status Status: Acute Review of Systems unobtainable Objective Vital Signs Date Time Temp Pulse Resp B/P Pulse Ox O2 Delivery O2 Flow Rate FiO2 02/07/17 16:28 36.4 89 18 124/88 95 Room Air 02/07/17 16:00 Room Air 02/07/17 08:09 36.5 73 18 117/81 99 Room Air 02/07/17 08:00 Room Air 02/07/17 00:50 99 Room Air 02/06/17 21:19 Room Air Physical Exam General Appearance: no apparent distress Eyes: EOMI ENT: hearing grossly normal Neck: trachea midline Extremities: normal range of motion Neurologic/Psychiatric: learning support resource room teacher II-XII nml as tested, alert, + disoriented, + pertinent finding (rigidity minimal) Skin: normal color, warm/dry Assessment and Plan rhabdomyolysis and mild neuroleptic malignant syndrome -neurology input appreciated -appears improving, continue to follow simply off psych meds -CPK trending down and exam improving -repeat labs again 02/08 Lewy body dementia -off antipsychotics due to above -d/w psych for thoughts on further meds. for now we're all in agreement that he 's neither violently agitated nor appearing in distress so hold on all meds - if meds were to be necessary would then consider seroquel 12.5mg -appearing overall stable Abnormal liver function tests--likely relates to rhabdo and NMS, need to continue to follow - levels bouncing around some, albeit in fairly low ranges - repeat 02/08 Hypertension--holding amlodipine and BP's reviewed and still reasonable Tobacco use disorder continue nicotine patch topical daily. DVT proph - lovenox
[2017-02-07 20:00] VITALS: O2SAT 95
[2017-02-07] MEDS: ENOXAPARIN 40 MG/0.4 ML SYR SQ SCH (20:00)
[2017-02-07] MEDS: LORAZEPAM INJ 1 MG in SYRINGE 0.5 ML IV PRN (20:53)
[2017-02-08] VITALS: O2SAT 95
[2017-02-08] MEDS: SODIUM CHLOR 0.45% + 20MEQ KCL 1,000 ML IV SCH ×2 (00:08→20:12)
[2017-02-08 07:41] VITALS: BP 115/76; PULSE 86; TEMP 37; O2SAT 91
[2017-02-08 08:08] LABS: BUN/CREATININE RATIO 15.9 (10-20); CALCIUM 8.7 mg/dl (8.5-10.1); CREATININE 0.81 mg/dl (0.60-1.40); POTASSIUM 3.7 mmol/L (3.5-5.1)
[2017-02-08] MEDS: NICOTINE 14 MG/24 HR TDSY TD SCH (08:47)
--- NOTE | 2017-02-08 16:26 | Progress Note ---
Subjective Date of Service: Feb 08, 2017. Subjective Pt evaluation today including: conversation w/ patient, physical exam, lab review, review of inpatient medication list no HPI or ROS obtainable TOP LIFT TRIMMER notes overall he's been doing well for her Problem List Medical Problems: (1) Altered mental status Status: Acute Review of Systems unobtainable Objective Vital Signs Date Time Temp Pulse Resp B/P Pulse Ox O2 Delivery O2 Flow Rate FiO2 02/08/17 08:00 Room Air 02/08/17 07:41 37.0 86 20 115/76 91 Room Air 02/08/17 00:00 95 Room Air 02/07/17 20:00 95 Room Air 2.0 02/07/17 16:28 36.4 89 18 124/88 95 Room Air Physical Exam General Appearance: no apparent distress Eyes: EOMI ENT: hearing grossly normal Neck: trachea midline Respiratory/Chest: no respiratory distress, no accessory muscle use Extremities: normal range of motion Neurologic/Psychiatric: manager pacu II-XII nml as tested, alert, + disoriented, + pertinent finding (rigidity seems to be down to baseline for lewy body. not nearly as stiff/rigid/contracted as before) Skin: normal color Laboratory Results Last 24 Hours Test 02/08/17 06:52 Sodium Level 140 mmol/L Potassium Level 3.7 mmol/L Chloride Level 105 mmol/L Carbon Dioxide Level 26 mmol/L Anion Gap 9.0 mmol/L Blood Urea Nitrogen 13 mg/dl Creatinine 0.81 mg/dl Est Creatinine Clear Calc Drug Dose 78.4 ml/min Estimated GFR () 115.1 Estimated GFR (Non- 99.4 BUN/Creatinine Ratio 15.9 Random Glucose 98 mg/dl Calcium Level 8.7 mg/dl Total Bilirubin 0.7 mg/dl Aspartate Amino Transf (AST/SGOT) 25 U/L Alanine Aminotransferase (ALT/SGPT) 64 U/L Alkaline Phosphatase 62 U/L Total Creatine Kinase 236 U/L Total Protein 6.5 gm/dl Albumin 3.3 gm/dl Globulin 3.2 gm/dl Albumin/Globulin Ratio 1.0 Assessment and Plan rhabdomyolysis and mild neuroleptic malignant syndrome -neurology input appreciated -appears improved, continue to follow simply off psych meds -CPK and other labs now normalized -stable for return to SNF (likely can be arranged for 02/09) Lewy body dementia -off antipsychotics due to above -d/w psych for thoughts on further meds. for now we're all in agreement that he 's neither violently agitated nor appearing in distress so hold on all meds - if meds were to be necessary would then consider seroquel 12.5mg -appearing overall stable, has mostly been pleasant and certainly no distressed or violent agitation Abnormal liver function tests--likely relates to rhabdo and NMS, normalized Hypertension--holding amlodipine and BP's reviewed and still reasonable; given this -- would view ongoing treatment of HTN in severe dementia w #'s in good range as likely more harm than benefit - will stop meds. Tobacco use disorder continue nicotine patch topical daily. DVT proph - lovenox dispo - anticipate return to SNF 02/09
--- NOTE | 2017-02-08 16:31 | Discharge Instructions ---
Discharge Instructions Date of Service Feb 08, 2017. Admission Reason for Admission: Altered Mental Status Discharge Discharge Diagnosis / Problem: mild neuroleptic malignant syndrome Discharge Goals Goal(s): Diagnostic testing, Therapeutic intervention Activity Recommendations Activity Level: Assistance Required Therapies: Physical Therapy, Occupational Therapy . Additional Information Patient informed of condition: Yes (unable to comprehend, POA informed) Advance Directives: No DNR: No Level of Care: Skilled Communicable Disease: No Prognosis: Improving (acutely; chronically unfortunately poor prognosis due to lewy body) Instructions / Follow-Up Instructions / Follow-Up appears to have had mild neuroleptic malignant syndrome - fortunately improved with nothing beyond withholding psych meds. -in hospital has been at times a little restless but no distressed or violent agitation - would hold on any psychiatric meds as long as continues in this trend. psych and neuro recommendations are to avoid cholinergics, cogentin unlikely to be of much benefit, and that if any antipsychotic truly needed consider low dose (such as 12.5mg) seroquel Blood pressures have been overall reasonable to well-controlled with amlodipine on hold. given these readings and severity of dementia, would stop amlodipine and simply follow off meds to reduce iatrogenic fall risk. consider resuming antihypertensives if consistently at least stage 1 (if not probably stage 2) hypertension, given risk/benefit balance Current Hospital Diet Patient's current hospital diet: Regular Diet Discharge Diet Recommended Diet: Regular Diet Pending Studies Studies pending at discharge: no Medical Emergencies . Who to Call and When: Medical Emergencies: If at any time you feel your situation is an emergency, please call 911 immediately. . Non-Emergent Contact Non-Emergency issues call your: Primary Care Provider . . "Provider Documentation" section prepared by Rodriguez Ibarra. Core Measure Problem Core Measures: None
--- NOTE | 2017-02-08 17:36 | PROGRESS NOTE ---
DATE: 02/08/2017 I am seeing Mr. Bell in followup of an admission for an NMS type presentation associated with Haldol use. He has a Lewy body dementia with parkinsonism. He had a relatively good night. He required some Ativan for some mild agitation and insomnia. Today, he is looking less rigid. He is distractible. Follows no simple commands, although is able to be ambulated. No resting tremor. There is no significant upper extremity rigidity. There is facial masking and a tendency to turn en bloc. IMPRESSION: Lewy body dementia with parkinsonism with an NMS type picture related to Haldol use. The patient continues to gradually improve back to baseline. We would recommend psychiatry re-involvement if the patient were to become agitated. LUISD
[2017-02-08 20:00] VITALS: O2SAT 91
[2017-02-08] MEDS: ENOXAPARIN 40 MG/0.4 ML SYR SQ SCH (20:00)
[2017-02-08] MEDS: LORAZEPAM INJ 1 MG in SYRINGE 0.5 ML IV PRN (22:43)
[2017-02-08 22:50] VITALS: BP 125/84; PULSE 81; TEMP 36.6; O2SAT 97
[2017-02-08 23:10] VITALS: BP 117/77; PULSE 81; TEMP 36.7; O2SAT 96
[2017-02-09 06:44] LABS: HEMATOCRIT 40.3 % (42-52); MEAN CELL VOLUME 84.5 fL (80-100); MEAN CORPUSCULAR HEMOGLOBIN 30.4 pg (25-34); MEAN PLATELET VOLUME 10.2 fL (7.4-10.4); PLATELET COUNT 253 K/uL (130-400); RED BLOOD COUNT 4.77 M/uL (4.7-6.1); WHITE BLOOD COUNT 5.92 K/uL (4.8-10.8)
[2017-02-09 07:14] LABS: CREATININE 0.99 mg/dl (0.60-1.40)
[2017-02-09 07:48] VITALS: BP 131/87; PULSE 88; TEMP 36.8; O2SAT 98
[2017-02-09 08:00] VITALS: O2SAT 98
--- NOTE | 2017-02-09 09:05 | Discharge Summary ---
Discharge Summary Date of Service Feb 09, 2017. (Aminah Gonzalez PA-C) Discharge Summary Admission Date: Feb 03, 2017 at 19:48 Discharge Date: Feb 09, 2017 Discharge Disposition: group home facility Principal Diagnosis: rhabdomyolysis and mild neuroleptic malignant syndrome, Lewy body dementia Problems/Secondary Diagnoses: Hypertension, tobacco use hx, Lewey body dementia Procedures: HEAD CT NONCONTRAST 02/06/17 Impression: 1. No acute intracranial abnormality. 2. Mild hydrocephalus with mild atrophy somewhat prominent for age. 3. Moderate chronic small vessel change, also somewhat prominent for age. 4. No acute intracranial abnormality. CXR 1 view portable 02/06/17 IMPRESSION: Negative chest. Right upper quadrant ultrasound (LIVER) ABDOMEN LIMITED 02/03/17 IMPRESSION: Normal study Consultations: Psychiatry Neurology (Aminah Gonzalez PA-C) Problems/Secondary Diagnoses: abnormal LFTs - resolved acute kidney injury 2nd to neuroleptic malignant syndrome - resolved (Austin Celis MD) Medication Reconciliation New Medications: Quetiapine Fumarate (Seroquel) 25 Mg Tab 0.5 TAB PO HS for 30 Days, #30 TAB 0 Refills Continued Medications: Acetaminophen (Tylenol) 325 Mg Tab 650 MG PO Q6 PRN for Pain, TAB Nicotine (Nicotine) 14 Mg/24 Hr Dis 1 PATCH TOP DAILY for 28 Days, #28 PATCH Discontinued Medications: Amlodipine (Norvasc) 2.5 Mg Tab 2.5 MG PO QAM, TAB Aripiprazole (Abilify) 2 Mg Tab 2 MG PO QAM, TAB Benztropine Mesylate (Benztropine Mesylate) 1 Mg Tab 1 MG PO QAM Mirtazapine (Mirtazapine) 15 Mg Tab 15 MG PO QPM Rivastigmine (Rivastigmine Transdermal) 9.5 Mg/24 Hr Dis 9.5 MG TOP DAILY Discharge Exam The patient was seen and examined this morning. Pt appears comfortable this morning yet slightly restless. His speech is clear, he is able to follow commands appropriately. He has no acute complaints today and request a cup of coffee. Bedside sitter is present. Review of Systems: Constitutional: No chills, No fever, No sweats Eyes: No diplopia, No problem reported ENT: No sore throat, No trouble swallowing Respiratory: No cough, No shortness of breath Cardiovascular: No chest pain, No palpitations Abdomen: No pain Musculoskeletal: No joint pain, No swelling Neurologic: + problem reported (lewey body dementia) Integumentary: No itch, No rash Physical Exam: General Appearance: WD/WN, no apparent distress, + thin Eyes: PERRL, EOMI ENT: hearing grossly normal, + pertinent finding (+ white exudate on tongue and soft palate) Neck: supple, no JVD Respiratory/Chest: lungs clear, no respiratory distress, no accessory muscle use Cardiovascular: regular rate, rhythm, no murmur, normal peripheral pulses Abdomen / GI: normal bowel sounds, non tender, soft Extremities: no calf tenderness, no pedal edema 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 He was also noted to be mumbling and agitated there. He recently had Haldol and amlodipine stopped there is well. The patient himself is not able to contribute to the history of present illness due to his altered mental status and baseline Lewy body dementia. His was present during the exam is able to fill in part of the history. Physical Exam Vital Signs Date Time Temp Pulse Resp B/P Pulse Ox O2 Delivery O2 Flow Rate FiO2 02/04/17 00:00 Room Air 02/03/17 21:54 36.8 75 17 107/72 98 Room Air 02/03/17 20:50 60 14 87/55 91 Room Air 02/03/17 19:53 77 16 95/62 97 Room Air 02/03/17 18:38 89 20 103/70 93 02/03/17 18:22 100 16 148/101 96 Room Air 02/03/17 18:03 93 Room Air 2.0 02/03/17 18:03 93 2.0 02/03/17 17:55 78 20 193/122 99 Room Air 02/03/17 17:40 104 02/03/17 17:25 36.8 24 132/92 95 Room Air The patient is sedated, does not respond to questioning, is in no acute distress. HEENT--PERRL, EOMI, mucous membranes and oropharynx dry. Neck--supple, no JVD or bruits, thyroid normal, trachea midline, no adenopathy. Heart--normal S1 and S2, no extra beats, no murmurs, rubs or gallops. Lungs--clear bilaterally, no respiratory distress, no accessory muscle use. Abdomen--normal bowel sounds and soft, nontender and nondistended, no hernias or masses, no organomegaly. Extremities--no cyanosis, clubbing or edema. There are good distal pulses b/l. Dermatologic--normal skin turgor, normal color, warm and dry, no abnormal lymph nodes, no rash. Neurologic--cranial nerves II through XII grossly intact, motor and sensory examination normal. Rheumatologic--normal range of motion, nontender, muscles and joints. Hospital Course: This is a 57 yo M with PMHx of Lewy body dementia, hypertension and tobacco use hx admitted with increasing rigidity, falling and more confusion and agitation with elevated ck. There was no other infectious etiology found as the patient was without fever or leukocytosis. Pt was found to have rhabdomyolysis and mild neuroleptic malignant syndrome. Neurology and psychiatry were consulted. The patient was taken off his psychiatric meds ( remeron, abilify and haldol) as it was thought that haldol had cause NMS along with underlying dementia and Lewy body dementia. CK normalized with supportive therapy. Rigidity greatly improved prior to discharge, pt return to [facility]. Rhabdomyolysis and mild neuroleptic malignant syndrome -neurology input appreciated -appears improved, continue to follow simply off psych meds -CPK and other labs now normalized -stable for return to SNF (likely can be arranged for 02/09) Lewy body dementia -off antipsychotics due to above -d/w psych for thoughts on further meds. for now all in agreement that he's neither violently agitated nor appearing in distress. Psych in agreement wtih starting low dose seroquel since pt has been restless. - Will start seroquel 12.5 mg QHS tonight, and consider this in the morning if its not too sedating - further meds per [facility] psychiatrist. - appearing overall stable, has mostly been pleasant and certainly no distressed or violent agitation Abnormal liver function tests--likely relates to rhabdo and NMS, normalized Hypertension--holding amlodipine and BP's reviewed and still reasonable; given this -- would view ongoing treatment of HTN in severe dementia w #'s in good range as likely more harm than benefit - will stop meds. Tobacco use disorder continue nicotine patch topical daily. DVT proph - lovenox dispo - return to [facility] today Total Time Spent: Greater than 30 minutes This includes examination of the patient, discharge planning, medication reconciliation, and communication with other providers. (Aminah Gonzalez PA-C) Attending Attestation & Discharge Note: Pt seen/examined, chart reviewed, and care plan d/w LUIS EDUARDO Gonzalez on the day of discharge. I agree w/ the soler components of her discharge summary. 57yo male with known Lewy-Body Dementia who presented with suspected neuroleptic malignant syndrome and mild rhabdomyolysis consistent with such. All antipsychotics were withdrawn and he received IVF along with other supportive care measures. CPK normalized with fluids. Presenting symptoms (fever, rigidity, etc) all resolved. Although it would be ideal to stop all antipsychotics moving forward we recognize that he may need a very low-dose antipsychotic at the [facility] to control his agitation from the dementia. Psychiatry recommended to our team that, if needed, seroquel 12.5mg at HS could be used for agitation/delirium. discharge exam - gen - NAD, noncommunicative mouth - MMM heart - RRR, s1, s2 lungs - CTA b/l abd - soft, NT ext - no edema neuro - no rigidity, free ROM of all 4 extremities; mild ankle clonus, however, left ankle Austin Celis MD (Austin Celis MD) Discharge Instructions Please refer to the electronic Patient Visit Report (Discharge Instructions) for additional information. (Aminah Gonzalez, VIBHA) Follow-Up Follow up with your Primary Care Provider at [facility] within 24 hours of arrival. (Aminah Gonzalez PA-C) Additional Copies To [facility]
[2017-02-09] MEDS: NICOTINE 14 MG/24 HR TDSY TD SCH (09:32)
[2017-02-09] MEDS: LORAZEPAM INJ 1 MG in SYRINGE 0.5 ML IV PRN (09:32)
[2017-02-09] MEDS ORDERED: NURSING VERBAL MED ORDER ONE (10:15)
[2017-02-09 10:30] VITALS: BP 131/87; PULSE 88; TEMP 36.8; O2SAT 98
--- NOTE | 2017-02-09 11:09 | Hospitalist Progress Note ---
Hospitalist Progress Note Date of Service Feb 09, 2017. (Aminah Gonzalez PA-C) Subjective Pt evaluation today including: conversation w/ patient, physical exam, chart review, lab review, review of studies, review of inpatient medication list The patient was seen and examined this morning. Pt appears comfortable this morning yet slightly restless. His speech is clear, he is able to follow commands appropriately. He has no acute complaints today and request a cup of coffee. Bedside sitter is present. Review of Systems: Constitutional: No chills, No fever, No sweats Eyes: No diplopia, No problem reported ENT: No sore throat, No trouble swallowing Respiratory: No cough, No shortness of breath Cardiovascular: No chest pain, No palpitations Abdomen: No pain Musculoskeletal: No joint pain, No swelling Neurologic: + problem reported (lewey body dementia) Integumentary: No itch, No rash (Aminah Gonzalez PA-C) Objective Vital Signs Date Time Temp Pulse Resp B/P Pulse Ox O2 Delivery O2 Flow Rate FiO2 02/09/17 10:30 36.8 88 16 98 Room Air 02/09/17 08:00 98 Room Air 02/09/17 07:48 36.8 88 16 131/87 98 Room Air 02/08/17 23:53 Room Air 02/08/17 23:10 36.7 81 14 117/77 96 Room Air 02/08/17 22:50 36.6 81 18 125/84 97 Room Air 02/08/17 20:00 91 Room Air 2.0 02/08/17 16:00 Room Air (Aminah Gonzalez PA-C) Physical Exam Notes: Physical Exam: General Appearance: WD/WN, no apparent distress, + thin Eyes: PERRL, EOMI ENT: hearing grossly normal, + pertinent finding (+ white exudate on tongue and soft palate) Neck: supple, no JVD Respiratory/Chest: lungs clear, no respiratory distress, no accessory muscle use Cardiovascular: regular rate, rhythm, no murmur, normal peripheral pulses Abdomen / GI: normal bowel sounds, non tender, soft Extremities: no calf tenderness, no pedal edema 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, alert, + disoriented Skin: normal color, warm/dry (Aminah Gonzalez PA-C) Laboratory Results Last 24 Hours Test 02/09/17 06:08 White Blood Count 5.92 K/uL Red Blood Count 4.77 M/uL Hemoglobin 14.5 g/dL Hematocrit 40.3 % Mean Corpuscular Volume 84.5 fL Mean Corpuscular Hemoglobin 30.4 pg Mean Corpuscular Hemoglobin Concent 36.0 g/dl RDW Standard Deviation 39.6 fL RDW Coefficient of Variation 13.0 % Platelet Count 253 K/uL Mean Platelet Volume 10.2 fL Creatinine 0.99 mg/dl Est Creatinine Clear Calc Drug Dose 64.1 ml/min Estimated GFR () 98.3 Estimated GFR (Non- 84.8 (Aminah Gonzalez PA-C) Assessment and Plan This is a 57 yo M with PMHx of Lewy body dementia, hypertension and tobacco use hx admitted with increasing rigidity, falling and more confusion and agitation with elevated ck. There was no other infectious etiology found as the patient was without fever or leukocytosis. Pt was found to have rhabdomyolysis and mild neuroleptic malignant syndrome. Neurology and psychiatry were consulted. The patient was taken off his psychiatric meds (remeron, abilify and haldol) as it was thought that haldol had cause NMS along with underlying dementia and Lewy body dementia. CK normalized with supportive therapy. Rigidity greatly improved. Rhabdomyolysis and mild neuroleptic malignant syndrome -neurology input appreciated -appears improved, continue to follow simply off psych meds -CPK and other labs now normalized Lewy body dementia -off antipsychotics due to above- required IV Ativan around 11 PM and again this morning at 9:30 AM, -Spoke with psychiatry regarding initiation of Seroquel 12.5 mg, they deferring to outpatient physician, plan to start Seroquel 12.5 daily at bedtime tonight. We'll reassess in the morning if patient requires another dose in the morning. We'll watch that it is not too sedating. -We will attempt to dc bedside sitter today in anticipation of discharge tomorrow -appearing overall stable, has mostly been pleasant and certainly no distressed or violent agitation Abnormal liver function tests--likely relates to rhabdo and NMS, normalized Hypertension--holding amlodipine and BP's reviewed and still reasonable; given this -- would view ongoing treatment of HTN in severe dementia w #'s in good range as likely more harm than benefit - will stop meds. Tobacco use disorder continue nicotine patch topical daily. DVT proph - lovenox Dispo - return to [facility] likely tomorrow (Aminah Gonzalez, VIBHA) Attending Attestation: Pt seen/examined, chart reviewed, care plan d/w LUIS EDUARDO Gonzalez. I agree w/ the soler components of her documentation. Please see the discharge summary addendum for my assessment and recommendations. Austin Celis MD (Austin Celis MD)
[2017-02-09] MEDS ORDERED: QUET1TAB91 PO (12:51)
[2017-02-09] MEDS ORDERED: QUETIAPINE FUMARATE 25 MG TAB PO SCH (21:00)
== END 2017-02-09 12:40 | DRG 557 ==
LOC: ENRESERVTM → ENRESERVDT → C.EDC 16:58 → C.MS4W 19:48 → C.MED 02-08 22:57
PROVIDERS: ADMIT Hospitalist; ATTEND Internal Medicine
DX: M62.82 Rhabdomyolysis (principal); G21.0 Malignant neuroleptic syndrome; G31.83 Neurocognitive disorder with Lewy bodies; I10 Essential (primary) hypertension; R41.82 Altered mental status, unspecified; R94.5 Abnormal results of liver function studies; R74.8 Abnormal levels of other serum enzymes; Z87.891 Personal history of nicotine dependence; Z91.81 History of falling; Z79.899 Other long term (current) drug therapy

== ENCOUNTER → 2017-02-15 | Outpatient (CLI) | payer OTHER, MEDICARE ==
[~2017-02-15] MED LIST: ACET-1311 PO; NICO14DI9 TOP; QUET1TAB91 PO
[2017-02-15 15:42] LABS: BLOOD UREA NITROGEN 87 mg/dl (7-18); BUN/CREATININE RATIO 33.6 (10-20); CALCIUM 9.6 mg/dl (8.5-10.1); CARBON DIOXIDE 26 mmol/L (21-32); CHLORIDE 117 mmol/L (98-107); GLUCOSE 141 mg/dl (70-99); POTASSIUM 4.3 mmol/L (3.5-5.1); SODIUM 156 mmol/L (136-145)
== END | disposition home or self-care (01) ==
LOC: C.LABUPHEI 10:18
PROVIDERS: ATTEND Family Medicine
DX: R41.82 Altered mental status, unspecified (principal)